=== PATIENT | female | born 1970 | race Caucasian/White ===

== ENCOUNTER 2017-03-14 19:11 | Observation (INO) | payer OTHER ==
[~2017-03-14] VITALS: Ht 170.2 cm; Wt 61.2 kg
[~2017-03-14 19:11] MED LIST: ACYCLOVIR400 MG PO; BACTRIM DS1 TAB PO; BUSPAR5 MG PO; CIPRO500 MG OR; FLUCONAZOLE100 MG PO; MULTI VITAMN OR; NEURONTIN300 MG PO; NORCO1 TA1 PO; PAXIL40 MG OR; ROBITUSS12 OR; SEPTRA DS1 TAB OR; THORAZINE25 MG PO; TORADOL OR; TORADOL PO; ZOFRAN ODT4 MG OR; ZOLOFT100 MG PO; [UNRECOGNIZED DRUG - OTHER] PO
--- NOTE | 2017-03-14 19:11 | NUR ---
RECEIVED VIA EMS
--- NOTE | 2017-03-14 19:54 | NUR ---
PT WITH BLOOD DRAWN BY LAB, PLACED ON MONITORS, WARM BLANKETS PROVIDED.
[2017-03-14 20:05] LABS: HEMATOCRIT 35.4 % (37.0-47.0); HEMOGLOBIN 11.9 g/dl (12.0-16.0); IMMATURE GRANULOCYTES 0.5 % (0.0-1.0); MEAN CELL VOLUME 93.2 fL CALC (80.0-100.0); MEAN CORPUSCULAR HGB 31.3 pG CALC (26.0-32.0); MEAN CORPUSCULAR HGB CONC 33.6 g/L CALC (32.0-36.0); NEUT# 2.4 thou/uL (2.00-7.15); RED BLOOD COUNT 3.8 mill/uL (4.20-5.60); RED CELL DISTRI WIDTH 13.1 % (11.5-15.5)
[2017-03-14 20:12] LABS: ALBUMIN 3.3 g/dL (3.2-5.0); ALKALINE PHOSPHATASE 70 u/l (38-126); ANION GAP 14 (6-22 (CALC)); BILIRUBIN, TOTAL 0.2 mg/dL (0.0-1.4); BUN 10 mg/dL (7-17); BUN/CREATININE RATIO 10 (12-20 (CALC)); CARBON DIOXIDE 21 mmol/l (22-30); CHLORIDE 111 mmol/l (95-108); GFR 59 ML/MIN (>=60 (CALC)); GFR FOR AFR.AMER. > 60 ML/MIN (>=60 (CALC)); GLUCOSE 152 mg/dL (65-105); POTASSIUM 4.1 mmol/l (3.5-5.1); SGOT/AST 14 u/l (14-36); SGPT/ALT 16 u/l (9-52); SODIUM 141 mmol/l (137-146); TOTAL PROTEIN 6.7 g/dL (6.3-8.2)
[2017-03-14 20:24] LABS: MYOGLOBIN 34 ng/mL (0 - 62)
--- NOTE | 2017-03-14 21:08 | NUR ---
PT CLEANED UP FOR STOOL INCONTINENCE. IVF CONTINUES BEFORE.
[2017-03-14 21:48] LABS: URINE BLOOD DIPSTICK NEGATIVE (NEGATIVE); URINE COLOR YELLOW; URINE GLUCOSE - DIPSTICK NEGATIVE (NEGATIVE); URINE KETONE NEGATIVE (NEGATIVE); URINE LEUK ESTERASE TRACE (NEGATIVE); URINE PROTEIN - DIPSTICK NEGATIVE (NEG-TRACE); URINE UROBILINOGEN - DIPSTICK 0.2 E.U./dL (0.2)
[2017-03-14 21:50] LABS: URINE BILIRUBIN - DIPSTICK MODERATE (NEGATIVE); URINE CLARITY CLOUDY; URINE NITRITE - DIPSTICK POSITIVE (Negative)
--- NOTE | 2017-03-14 22:00 | NUR ---
ASSUMED CARE FROM ESTEBAN LIAO
[2017-03-14 22:04] LABS: C. DIFFICILE TOXIN A&B NEGATIVE (NEGATIVE)
[2017-03-14 22:06] LABS: URINE BACTERIA MANY hpf; URINE SQUAMOUS EPITHELIAL CELL FEW EPI/hpf (0-FEW)
[2017-03-14 22:10] LABS: COCAINE NEGATIVE (NEGATIVE); TETRAHYDROCANNABIONOL POSITIVE (NEGATIVE)
[2017-03-14 22:11] LABS: BARBITURATES NEGATIVE (NEGATIVE); METHADONE NEGATIVE (NEGATIVE); OXCYCODONE NEGATIVE (NEGATIVE); TRICYLIC ANTIDEPRESSANTS NEGATIVE (NEGATIVE)
--- NOTE | 2017-03-14 23:10 | NUR ---
[facility] AT BEDSIDE. TRANSFERRED CARE, ENROUTE TO [facility] FOR CT BRAIN.
--- NOTE | 2017-03-15 01:25 | NUR ---
PT RETURNED FROM [facility]. PT WITH EYES CLOSED, RESPONDS TO VERBAL STIMULI.
--- NOTE | 2017-03-15 02:15 | NUR ---
REPORT CALLED TO LESLYE LIAO.
--- NOTE | 2017-03-15 02:25 | NUR ---
PT COND STABLE. TO RM 282 WITH RN ON TELE.
[2017-03-15 02:43] VITALS: BP 123/75
--- NOTE | 2017-03-15 02:45 | NUR ---
PATIENT ADMITTED FROM ER VIA STRETCHER WITH ER STAFF IN ATTENDANCE.
--- NOTE | 2017-03-15 04:11 | NUR ---
PATIENT ADMITTED FROM ER VIA STRETCHER AND ER STAFF IN ATTENDANCE. PATIENT ASSISTED FROM STRETCHER TO THE SHOWER-PATIENT WITH DRIED FECES AND FOUL SMELL AND IN NEED OF PERSONEL HYGEINE. PATIENT IS DEFENSIVE AND VERBALLY USING FOUL LANGUAGE UNTIL IN SHOWER. ASSISTED WITH SHOWER AND THEN TO BED. PATIENT WITH IV SITE TO LEFT AC-SITE APPEARS HEALTHY. IVF NS HUNG AND INFUSING AT 150CC/HR. PATIENT IS ORIENTEDX3. STATES THAT SHE IS HIV+. PATIENT WITH HX OF MRSA. NASAL SWAB OBTAINED AND SENT TO LAB. PATIENT PLACED ON CONTACT FOR HX OF MRSA. PATIENT ADMITS TO [facility]. PATIENT PROVIDED WITH JUICE AND CRACKERS PER REQUEST. ORIENTED TO ROOM AND SURROUNDINGS. INSTRUCTED ON USE OF NURSE CALL LIGHT SYSTEM AND TV REMOTE. SAFETY PRECAUTIONS REVIEWED WITH PATIENT. CALL LIGHT IN REACH. WILL CONT TO MONITOR.
[2017-03-15 05:03] VITALS: BP 107/66
--- NOTE | 2017-03-15 07:00 | NUR ---
SHIFT CHANGE REPORT FROM [place], ELIAS SLEEPING BUT AROUSES TO VERBAL STIMULI, ORIENTED, IVF INFUSING, NO C/O DISCOMFORT, CALL HANSEN IN REACH.
[2017-03-15 07:10] VITALS: BP 89/64
--- NOTE | 2017-03-15 08:30 | NUR ---
PT ALERT AND ORIENTED X3, PT FINISHED BREAKFAST WITH NO ISSUES. ASSESSMENT COMPLETED. LUNG SOUNDS WERE CLEAR WITH NON-PRODUCTIVE COUGH. NEURO ASSESSMENT NORMAL. PT ASSISTED TO THE BATHROOM WITH STEADY GAIT, CREAM DUMPER ON STAND BY.PATIENT DID NOT HAVE ANY COMPLAINTS OF DIZZINESS. IV SITE IS FREE FROM EDEMA AND REDNESS. PT REQUESTING COFFEE AT THIS TIME, NO NEW COMPLAINTS. CALL LIGHT WITHIN REACH. PT EDUCATED TO CALL FOR ASSISTANCE. WILL CONTINUE TO MONITOR.
[2017-03-15 10:06] LABS: HEMATOCRIT 31.8 % (37.0-47.0); HEMOGLOBIN 10.6 g/dl (12.0-16.0); IMMATURE GRANULOCYTES 0.3 % (0.0-1.0); MEAN CELL VOLUME 94.6 fL CALC (80.0-100.0); MEAN CORPUSCULAR HGB 31.5 pG CALC (26.0-32.0); MEAN CORPUSCULAR HGB CONC 33.3 g/L CALC (32.0-36.0); NEUT# 1.26 thou/uL (2.00-7.15); RED BLOOD COUNT 3.36 mill/uL (4.20-5.60)
[2017-03-15 10:34] LABS: ANION GAP 10 (6-22 (CALC)); BUN 7 mg/dL (7-17); BUN/CREATININE RATIO 9 (12-20 (CALC)); CALCULATED LDLCHOLESTEROL 59 mg/dL (62-129 (CALC)); CARBON DIOXIDE 19 mmol/l (22-30); CHLORIDE 119 mmol/l (95-108); CHOLESTEROL HDL RATIO 4.3 (<4.4 (CALC)); CREATININE 0.9 mg/dL (0.5-1.0); GFR > 60 ML/MIN (>=60 (CALC)); GFR FOR AFR.AMER. > 60 ML/MIN (>=60 (CALC)); GLUCOSE 105 mg/dL (65-105); HDL CHOLESTEROL 25 mg/dL (>=40); MAGNESIUM 1.6 mg/dL (1.6-2.3); POTASSIUM 4.5 mmol/l (3.5-5.1); SODIUM 143 mmol/l (137-146); TOTAL CHOLESTEROL 107 mg/dl (0-199); TOTAL TRIGLYCERIDES 118 mg/dl (30-149); VLDL CHOLESTROL 24 mg/dl (1-41 (CALC))
--- NOTE | 2017-03-15 11:12 | NUR ---
PT'S SON IS HERE AT THIS TIME INQUIRING ABOUT PLAN, PT GAVE PERMISSION TO SPEAK WITH HIM AND APPROPRIATE INFO GIVEN/QUESTIONS ANSWERED, WILL CONTINUE TO MONITOR.
[2017-03-15 11:35] VITALS: BP 110/77
[2017-03-15] MEDS ORDERED: KEFLEX500 MG PO (14:50)
[2017-03-15 15:27] VITALS: BP 95/62
--- NOTE | 2017-03-15 15:56 | NUR ---
Visited pt room for discharge med rec. Advised pt that she is being discharged on Keflex for UTI. Reviewed side effects with pt including N/V/D and that she can take with food to help avoid stomach upset, as well as that she should be sure to take complete the regimen to make sure infection does not return. Let pt know that if she develops a rash to contact physician. Pt stated that she does not have a car and is unsure of how she is going to get the medication. States that she used to use [facility] but they do not deliver to her home anymore. Called Renae at [facility] about Meds to Beds Program. Renae said that pt has [facility] which they do not take so med will be $15.98 but she can try to find a coupon for pt to get it at a less expensive damon and deliver it here at [facility] for her if she will be able to pay albert. Returned to pt room to discuss, but pt had already left hospital.
== END 2017-03-15 15:50 | disposition home or self-care (01) | DRG 897 ==
LOC: ED 19:11 → ED-I 03-15 01:15 → ED 03-15 01:40 → MS2 03-15 01:41
PROVIDERS: Emergency Medicine; Nurse Practitioner Family; ADMIT Internal Medicine; ATTEND Internal Medicine
DX: F15.159 Other stimulant abuse with stimulant-induced psychotic disorder, unspecified (principal); F11.159 Opioid abuse with opioid-induced psychotic disorder, unspecified; F12.159 Cannabis abuse with psychotic disorder, unspecified; I95.9 Hypotension, unspecified; N39.0 Urinary tract infection, site not specified; E03.9 Hypothyroidism, unspecified; F31.9 Bipolar disorder, unspecified; F17.210 Nicotine dependence, cigarettes, uncomplicated; E86.0 Dehydration; R63.6 Underweight; R63.0 Anorexia; B96.20 Unspecified Escherichia coli [E. coli] as the cause of diseases classified elsewhere; F10.10 Alcohol abuse, uncomplicated; Z86.718 Personal history of other venous thrombosis and embolism; Z59.0 Homelessness; Z21 Asymptomatic human immunodeficiency virus [HIV] infection status
CPT/HCPCS: G0378

== ENCOUNTER 2017-05-17 14:16 | Emergency (ER) | payer OTHER ==
[~2017-05-17] VITALS: Ht 170.2 cm; Wt 56.0 kg
[~2017-05-17 14:16] MED LIST changes: +KEFLEX500 MG PO
[2017-05-17 14:53] LABS: URINE BLOOD DIPSTICK MODERATE (NEGATIVE); URINE COLOR YELLOW; URINE GLUCOSE - DIPSTICK NEGATIVE (NEGATIVE); URINE KETONE NEGATIVE (NEGATIVE); URINE PH 5.5 (4.5-8.0); URINE PROTEIN - DIPSTICK 100 mg/dL (NEG-TRACE); URINE SPECIFIC GRAVITY 1.025; URINE UROBILINOGEN - DIPSTICK 0.2 E.U./dL (0.2)
[2017-05-17 14:55] LABS: URINE CLARITY CLOUDY; URINE LEUK ESTERASE MODERATE (NEGATIVE); URINE NITRITE - DIPSTICK POSITIVE (Negative)
[2017-05-17 14:56] LABS: URINE BILIRUBIN - DIPSTICK NEGATIVE (NEGATIVE)
[2017-05-17 15:03] LABS: URINE BACTERIA MODERATE hpf; URINE SQUAMOUS EPITHELIAL CELL FEW EPI/hpf (0-FEW); URINE WBC 50-100 WBC/hpf (0-5)
[2017-05-17] MEDS ORDERED: KEFLEX500 MG PO (15:22)
[2017-05-17] MEDS ORDERED: PYRIDIUM200 MG PO (15:22)
[2017-05-17 15:34] VITALS: BP 101/67
== END 2017-05-17 16:00 | disposition home or self-care (01) | DRG 690 ==
LOC: ED 14:16
PROVIDERS: Emergency Medicine
DX: N39.0 Urinary tract infection, site not specified (principal); B96.20 Unspecified Escherichia coli [E. coli] as the cause of diseases classified elsewhere; M54.5 Low back pain; R50.9 Fever, unspecified; R39.198 Other difficulties with micturition; Z21 Asymptomatic human immunodeficiency virus [HIV] infection status

== ENCOUNTER 2017-05-28 08:09 | Emergency (ER) | payer OTHER ==
[~2017-05-28] VITALS: Ht 170.2 cm; Wt 61.4 kg
[~2017-05-28 08:09] MED LIST changes: +PYRIDIUM200 MG PO
[2017-05-28] MEDS ORDERED: DICLOFENAC75 MG PO (08:43)
[2017-05-28] MEDS ORDERED: TRAZODONE50 MG PO (08:44)
[2017-05-28] MEDS ORDERED: LEVOTHYROXIN75 MCG PO (08:45)
[2017-05-28 08:50] LABS: IMMATURE GRANULOCYTES 0.7 % (0.0-1.0); MEAN CELL VOLUME 95.9 fL CALC (80.0-100.0); MEAN CORPUSCULAR HGB 30.9 pG CALC (26.0-32.0); MEAN CORPUSCULAR HGB CONC 32.2 g/L CALC (32.0-36.0); NEUT# 1.95 thou/uL (2.00-7.15); RED BLOOD COUNT 3.63 mill/uL (4.20-5.60); RED CELL DISTRI WIDTH 15.1 % (11.5-15.5)
[2017-05-28 08:53] LABS: HEMATOCRIT 34.8 % (37.0-47.0); HEMOGLOBIN 11.2 g/dl (12.0-16.0)
[2017-05-28 09:10] LABS: URINE BILIRUBIN - DIPSTICK NEGATIVE (NEGATIVE); URINE BLOOD DIPSTICK NEGATIVE (NEGATIVE); URINE CLARITY CLEAR; URINE COLOR YELLOW; URINE GLUCOSE - DIPSTICK NEGATIVE (NEGATIVE); URINE KETONE NEGATIVE (NEGATIVE); URINE LEUK ESTERASE NEGATIVE (NEGATIVE); URINE NITRITE - DIPSTICK NEGATIVE (Negative); URINE PROTEIN - DIPSTICK NEGATIVE (NEG-TRACE); URINE SPECIFIC GRAVITY 1.025; URINE UROBILINOGEN - DIPSTICK 0.2 E.U./dL (0.2)
[2017-05-28 09:11] LABS: BUN 9 mg/dL (7-17); BUN/CREATININE RATIO 12 (12-20 (CALC)); CHLORIDE 111 mmol/l (95-108); CPK 115 u/l (30-165); CREATININE 0.8 mg/dL (0.5-1.0); GFR > 60 ML/MIN (>=60 (CALC)); GFR FOR AFR.AMER. > 60 ML/MIN (>=60 (CALC)); POTASSIUM 4.4 mmol/l (3.5-5.1); SODIUM 140 mmol/l (137-146)
[2017-05-28 09:14] LABS: BARBITURATES NEGATIVE (NEGATIVE); COCAINE NEGATIVE (NEGATIVE); METHADONE NEGATIVE (NEGATIVE); OXCYCODONE NEGATIVE (NEGATIVE); TETRAHYDROCANNABIONOL POSITIVE (NEGATIVE); TRICYLIC ANTIDEPRESSANTS NEGATIVE (NEGATIVE)
[2017-05-28 09:22] LABS: ANION GAP 12 (6-22 (CALC)); CARBON DIOXIDE 21 mmol/l (22-30); ETHYL ALCOHOL 0 mg/dl (0-30)
[2017-05-28 09:40] LABS: TSH, 3RD GENERATION 1.39 uIU/mL (0.47 - 4.68)
[2017-05-28 11:06] VITALS: BP 112/76
== END 2017-05-28 11:10 | disposition home or self-care (01) | DRG 897 ==
LOC: ED 08:09
PROVIDERS: Family Medicine
DX: F15.10 Other stimulant abuse, uncomplicated (principal); F12.10 Cannabis abuse, uncomplicated; R56.9 Unspecified convulsions; Z21 Asymptomatic human immunodeficiency virus [HIV] infection status; F17.200 Nicotine dependence, unspecified, uncomplicated

== ENCOUNTER 2017-07-23 23:38 | Emergency (ER) | payer MEDICAID ==
[~2017-07-23] VITALS: Ht 170.2 cm; Wt 50.0 kg
[~2017-07-23 23:38] MED LIST changes: +DICLOFENAC75 MG PO; +LEVOTHYROXIN75 MCG PO; +TRAZODONE50 MG PO
[2017-07-24 00:24] LABS: HEMATOCRIT 33.9 % (37.0-47.0); HEMOGLOBIN 11.1 g/dl (12.0-16.0); IMMATURE GRANULOCYTES 0.4 % (0.0-1.0); MEAN CELL VOLUME 91.9 fL CALC (80.0-100.0); MEAN CORPUSCULAR HGB 30.1 pG CALC (26.0-32.0); MEAN CORPUSCULAR HGB CONC 32.7 g/L CALC (32.0-36.0); NEUT# 6.4 thou/uL (2.00-7.15); RED BLOOD COUNT 3.69 mill/uL (4.20-5.60); RED CELL DISTRI WIDTH 15.4 % (11.5-15.5)
[2017-07-24 00:26] LABS: URINE BLOOD DIPSTICK TRACE-INTACT (NEGATIVE); URINE CLARITY SL CLOUDY; URINE COLOR YELLOW; URINE GLUCOSE - DIPSTICK NEGATIVE (NEGATIVE); URINE KETONE NEGATIVE (NEGATIVE); URINE LEUK ESTERASE TRACE (NEGATIVE); URINE NITRITE - DIPSTICK NEGATIVE (Negative); URINE PH 5.5 (4.5-8.0); URINE PROTEIN - DIPSTICK 30 mg/dL (NEG-TRACE); URINE SPECIFIC GRAVITY >=1.030; URINE UROBILINOGEN - DIPSTICK 0.2 E.U./dL (0.2)
[2017-07-24 00:29] LABS: URINE BILIRUBIN - DIPSTICK NEGATIVE (NEGATIVE)
[2017-07-24 00:32] LABS: BARBITURATES NEGATIVE (NEGATIVE); COCAINE NEGATIVE (NEGATIVE); METHADONE NEGATIVE (NEGATIVE); TETRAHYDROCANNABIONOL POSITIVE (NEGATIVE); TRICYLIC ANTIDEPRESSANTS NEGATIVE (NEGATIVE)
[2017-07-24 00:33] LABS: OXCYCODONE NEGATIVE (NEGATIVE)
[2017-07-24 00:40] LABS: URINE BACTERIA MANY hpf; URINE SQUAMOUS EPITHELIAL CELL FEW EPI/hpf (0-FEW)
[2017-07-24 00:41] LABS: URINE FINE GRAN CAST FEW lpf
[2017-07-24 00:42] LABS: URINE AMORPH SEDIMENT FEW hpf (NONE-FEW); URINE YEAST MODERATE hpf
[2017-07-24 00:56] LABS: ALBUMIN 4.2 g/dL (3.2-5.0); ALKALINE PHOSPHATASE 110 u/l (38-126); BILIRUBIN, TOTAL 0.5 mg/dL (0.0-1.4); BUN 56 mg/dL (7-17); CHLORIDE 105 mmol/l (95-108); POTASSIUM 4.6 mmol/l (3.5-5.1); SGPT/ALT 33 u/l (9-52); SODIUM 143 mmol/l (137-146); TOTAL PROTEIN 8.8 g/dL (6.3-8.2)
[2017-07-24 00:57] LABS: ANION GAP 30 (6-22 (CALC)); BUN/CREATININE RATIO 14 (12-20 (CALC)); CARBON DIOXIDE 13 mmol/l (22-30); CREATININE 4.1 mg/dL (0.5-1.0); ETHYL ALCOHOL 0 mg/dl (0-30); GFR 12 ML/MIN (>=60 (CALC)); GFR FOR AFR.AMER. 14 ML/MIN (>=60 (CALC)); SGOT/AST 49 u/l (14-36)
[2017-07-24 08:15] VITALS: BP 108/65
== END 2017-07-24 08:15 | disposition short-term general hospital (02) | DRG 690 ==
LOC: ED 23:38
PROVIDERS: Emergency Medicine
DX: N39.0 Urinary tract infection, site not specified (principal); R45.851 Suicidal ideations; N19 Unspecified kidney failure; F19.20 Other psychoactive substance dependence, uncomplicated; F32.9 Major depressive disorder, single episode, unspecified; B96.20 Unspecified Escherichia coli [E. coli] as the cause of diseases classified elsewhere; F17.210 Nicotine dependence, cigarettes, uncomplicated; Z87.440 Personal history of urinary (tract) infections; Z21 Asymptomatic human immunodeficiency virus [HIV] infection status
CPT/HCPCS: J1956; J2060

== ENCOUNTER 2017-08-03 19:35 | Emergency (ER) | payer MEDICAID ==
[~2017-08-03] VITALS: Ht 170.2 cm; Wt 58.2 kg
[2017-08-03 20:43] LABS: HEMATOCRIT 33.4 % (37.0-47.0); HEMOGLOBIN 10.5 g/dl (12.0-16.0); IMMATURE GRANULOCYTES 0.7 % (0.0-1.0); MEAN CELL VOLUME 94.6 fL CALC (80.0-100.0); MEAN CORPUSCULAR HGB 29.7 pG CALC (26.0-32.0); MEAN CORPUSCULAR HGB CONC 31.4 g/L CALC (32.0-36.0); NEUT# 3.93 thou/uL (2.00-7.15); RED BLOOD COUNT 3.53 mill/uL (4.20-5.60); RED CELL DISTRI WIDTH 15.9 % (11.5-15.5)
[2017-08-03 20:53] LABS: MAGNESIUM 1.9 mg/dL (1.6-2.3); POTASSIUM 4.9 mmol/l (3.5-5.1)
[2017-08-03] MEDS ORDERED: MOTRIN400 MG PO (21:18)
[2017-08-03] MEDS ORDERED: ASPERCREME LIDOCA41 TOP (21:18)
[2017-08-03 23:04] LABS: URINE BILIRUBIN - DIPSTICK NEGATIVE (NEGATIVE); URINE BLOOD DIPSTICK NEGATIVE (NEGATIVE); URINE COLOR YELLOW; URINE GLUCOSE - DIPSTICK NEGATIVE (NEGATIVE); URINE KETONE NEGATIVE (NEGATIVE); URINE LEUK ESTERASE NEGATIVE (NEGATIVE); URINE NITRITE - DIPSTICK NEGATIVE (Negative); URINE PROTEIN - DIPSTICK TRACE mg/dL (NEG-TRACE); URINE UROBILINOGEN - DIPSTICK 0.2 E.U./dL (0.2)
[2017-08-03 23:06] LABS: URINE CLARITY TURBID
[2017-08-03 23:11] LABS: URINE BACTERIA FEW hpf; URINE MUCUS MANY hpf (NONE-FEW); URINE RBC 0-2 RBC/hpf (0-5); URINE SQUAMOUS EPITHELIAL CELL MANY EPI/hpf (0-FEW)
[2017-08-04 05:01] VITALS: BP 107/82
== END 2017-08-03 23:17 | disposition home or self-care (01) | DRG 552 ==
LOC: ED 19:35
PROVIDERS: Family Medicine
DX: M48.07 Spinal stenosis, lumbosacral region (principal); M54.5 Low back pain; Z21 Asymptomatic human immunodeficiency virus [HIV] infection status

== ENCOUNTER 2017-10-16 18:46 | Emergency (ER) | payer MEDICAID ==
[~2017-10-16] VITALS: Ht 170.2 cm; Wt 50.0 kg
[~2017-10-16 18:46] MED LIST changes: +ASPERCREME LIDOCA41 TOP; +MOTRIN400 MG PO
[2017-10-16] MEDS ORDERED: IBUPROFEN600 MG PO (19:59)
[2017-10-16 20:07] VITALS: BP 101/51
== END 2017-10-16 20:07 | disposition home or self-care (01) ==
LOC: ED 18:46
DX: S40.011A Contusion of right shoulder, initial encounter (principal); S50.812A Abrasion of left forearm, initial encounter; S50.811A Abrasion of right forearm, initial encounter; F17.210 Nicotine dependence, cigarettes, uncomplicated; F99 Mental disorder, not otherwise specified; Y92.009 Unspecified place in unspecified non-institutional (private) residence as the place of occurrence of the external cause; Y04.2XXA Assault by strike against or bumped into by another person, initial encounter; Z87.440 Personal history of urinary (tract) infections; Z21 Asymptomatic human immunodeficiency virus [HIV] infection status

== ENCOUNTER 2017-11-21 04:55 | Emergency (ER) | payer MEDICAID ==
[~2017-11-21] VITALS: Ht 170.2 cm; Wt 56.8 kg
[~2017-11-21 04:55] MED LIST changes: +IBUPROFEN600 MG PO
[2017-11-21 08:50] VITALS: BP 156/93
== END 2017-11-21 08:50 | disposition left against medical advice (07) ==
LOC: ED 04:55
DX: T18.128A Food in esophagus causing other injury, initial encounter (principal); J98.2 Interstitial emphysema; F17.210 Nicotine dependence, cigarettes, uncomplicated; Z91.19 Patient's noncompliance with other medical treatment and regimen
CPT/HCPCS: J1610; S0164

== ENCOUNTER 2018-01-03 13:06 | Emergency (ER) | payer MEDICAID ==
[~2018-01-03] VITALS: Ht 170.2 cm; Wt 54.5 kg
[~2018-01-03 13:06] MED LIST changes: +AZITHROMYCIN600 MG PO; +GABAPENTIN300 M2 PO
[2018-01-03 13:31] LABS: HEMATOCRIT 33.8 % (37.0-47.0); IMMATURE GRANULOCYTES 0.5 % (0.0-5.0); MEAN CELL VOLUME 93.1 fL CALC (80.0-100.0); MEAN CORPUSCULAR HGB 30.3 pG CALC (26.0-32.0); MEAN CORPUSCULAR HGB CONC 32.5 g/L CALC (32.0-36.0); NEUT# 2.53 thou/uL (2.00-7.15); RED BLOOD COUNT 3.63 mill/uL (4.20-5.60); RED CELL DISTRI WIDTH 15.5 % (11.5-15.5)
[2018-01-03 13:43] LABS: ANION GAP 13 (6-22 (CALC)); BUN 19 mg/dL (7-17); BUN/CREATININE RATIO 20 (12-20 (CALC)); CARBON DIOXIDE 21 mmol/l (22-30); CHLORIDE 111 mmol/l (95-108); GFR 59 ML/MIN (>=60 (CALC)); GFR FOR AFR.AMER. > 60 ML/MIN (>=60 (CALC)); POTASSIUM 3.5 mmol/l (3.5-5.1); SODIUM 141 mmol/l (137-146)
[2018-01-03 13:44] LABS: INFLUENZA A NONE DETECTED (NONE DETECT); INFLUENZA B NONE DETECTED (NONE DETECT)
[2018-01-03 15:53] VITALS: BP 97/62
[2018-01-03] MEDS ORDERED: MOTRIN400 MG PO (16:29)
== END 2018-01-03 16:44 | disposition home or self-care (01) ==
LOC: ED 13:06
PROVIDERS: Family Medicine
DX: R53.1 Weakness (principal); B20 Human immunodeficiency virus [HIV] disease; F19.20 Other psychoactive substance dependence, uncomplicated; F17.200 Nicotine dependence, unspecified, uncomplicated; Z87.440 Personal history of urinary (tract) infections; Z86.718 Personal history of other venous thrombosis and embolism; R42 Dizziness and giddiness

== ENCOUNTER 2018-01-15 12:35 | Emergency (ER) | payer MEDICAID ==
[~2018-01-15] VITALS: Ht 170.2 cm; Wt 50.0 kg
[2018-01-15 13:21] LABS: HEMATOCRIT 31.9 % (37.0-47.0); HEMOGLOBIN 10.4 g/dl (12.0-16.0); IMMATURE GRANULOCYTES 0.6 % (0.0-5.0); MEAN CELL VOLUME 91.4 fL CALC (80.0-100.0); MEAN CORPUSCULAR HGB 29.8 pG CALC (26.0-32.0); MEAN CORPUSCULAR HGB CONC 32.6 g/L CALC (32.0-36.0); NEUT# 9.68 thou/uL (2.00-7.15); RED BLOOD COUNT 3.49 mill/uL (4.20-5.60); RED CELL DISTRI WIDTH 14.8 % (11.5-15.5)
[2018-01-15 13:23] LABS: URINE BILIRUBIN - DIPSTICK NEGATIVE (NEGATIVE); URINE BLOOD DIPSTICK NEGATIVE (NEGATIVE); URINE COLOR YELLOW; URINE GLUCOSE - DIPSTICK NEGATIVE (NEGATIVE); URINE KETONE TRACE mg/dL (NEGATIVE); URINE LEUK ESTERASE NEGATIVE (Negative); URINE NITRITE - DIPSTICK NEGATIVE (Negative); URINE PH 5.5 (4.5-8.0); URINE PROTEIN - DIPSTICK TRACE mg/dL (NEG-TRACE); URINE SPECIFIC GRAVITY 1.025; URINE UROBILINOGEN - DIPSTICK 0.2 E.U./dL (0.2)
[2018-01-15 13:24] LABS: URINE CLARITY HAZY
[2018-01-15 13:26] LABS: BARBITURATES NEGATIVE (NEGATIVE); COCAINE NEGATIVE (NEGATIVE); METHADONE NEGATIVE (NEGATIVE); OXCYCODONE NEGATIVE (NEGATIVE); TETRAHYDROCANNABIONOL POSITIVE (NEGATIVE); TRICYLIC ANTIDEPRESSANTS NEGATIVE (NEGATIVE)
[2018-01-15 13:29] LABS: INFLUENZA A NONE DETECTED (NONE DETECT); INFLUENZA B NONE DETECTED (NONE DETECT)
[2018-01-15 13:46] LABS: ALKALINE PHOSPHATASE 75 u/l (38-126); BILIRUBIN, TOTAL 0.2 mg/dL (0.0-1.4); BUN 20 mg/dL (7-17); BUN/CREATININE RATIO 20 (12-20 (CALC)); CARBON DIOXIDE 19 mmol/l (22-30); CHLORIDE 107 mmol/l (95-108); GFR 59 ML/MIN (>=60 (CALC)); GFR FOR AFR.AMER. > 60 ML/MIN (>=60 (CALC)); SGOT/AST 17 u/l (14-36); SODIUM 136 mmol/l (137-146); TOTAL PROTEIN 6.7 g/dL (6.3-8.2)
[2018-01-15 14:00] LABS: ANION GAP 15 (6-22 (CALC)); POTASSIUM 4.5 mmol/l (3.5-5.1)
[2018-01-15] MEDS ORDERED: BACTRIM DS1 TAB PO (14:30)
[2018-01-15] MEDS ORDERED: TAM75CAP PO (14:30)
[2018-01-15] MEDS ORDERED: PROVENTIL108 MCG/AC IN (14:30)
[2018-01-15 14:44] VITALS: BP 101/57
== END 2018-01-15 14:50 | disposition home or self-care (01) ==
LOC: ED 12:35
PROVIDERS: Emergency Medicine
DX: J10.1 Influenza due to other identified influenza virus with other respiratory manifestations (principal); J20.8 Acute bronchitis due to other specified organisms; B20 Human immunodeficiency virus [HIV] disease; G40.909 Epilepsy, unspecified, not intractable, without status epilepticus; F17.200 Nicotine dependence, unspecified, uncomplicated; Z87.440 Personal history of urinary (tract) infections; Z86.718 Personal history of other venous thrombosis and embolism

== ENCOUNTER 2018-01-17 12:49 | Inpatient (IN) | payer MEDICAID ==
[~2018-01-17] VITALS: Ht 170.2 cm; Wt 49.9 kg
[~2018-01-17 12:49] MED LIST changes: +PROVENTIL108 MCG/AC IN; +TAM75CAP PO
--- NOTE | 2018-01-17 13:00 | NUR ---
PT TO ROOM VIA EMS STRETCHER, CRYING. MD AT BEDSIDE.
--- NOTE | 2018-01-17 13:42 | NUR ---
PT RELEASED FROM [facility] ON WEDNESDAY. RETURNING TO ER WITH FEVER- PT NOT TAKING ANY PRESCIBED MEDICATIONS. PT IS VERBALLY ABUSIVE TOWARDS STAFF. PT IS AOX4. PT DENIES ANY C/P, SOB. PT STATES BEING NAUSEATED.
[2018-01-17 13:45] LABS: HEMATOCRIT 31.8 % (37.0-47.0); HEMOGLOBIN 10.7 g/dl (12.0-16.0); IMMATURE GRANULOCYTES 0.7 % (0.0-5.0); MEAN CELL VOLUME 88.1 fL CALC (80.0-100.0); MEAN CORPUSCULAR HGB 29.6 pG CALC (26.0-32.0); MEAN CORPUSCULAR HGB CONC 33.6 g/L CALC (32.0-36.0); NEUT# 17.22 thou/uL (2.00-7.15); RED BLOOD COUNT 3.61 mill/uL (4.20-5.60); RED CELL DISTRI WIDTH 14.6 % (11.5-15.5)
[2018-01-17 13:48] LABS: ALBUMIN 3.6 g/dL (3.2-5.0); ALKALINE PHOSPHATASE 94 u/l (38-126); ANION GAP 19 (6-22 (CALC)); BILIRUBIN, TOTAL 0.3 mg/dL (0.0-1.4); BUN 25 mg/dL (7-17); BUN/CREATININE RATIO 22 (12-20 (CALC)); CARBON DIOXIDE 18 mmol/l (22-30); CHLORIDE 104 mmol/l (95-108); CREATININE 1.2 mg/dL (0.5-1.0); GFR 48 ML/MIN (>=60 (CALC)); GFR FOR AFR.AMER. 58 ML/MIN (>=60 (CALC)); LIPASE 64 u/l (23-300); POTASSIUM 4.3 mmol/l (3.5-5.1); SGOT/AST 17 u/l (14-36); SODIUM 136 mmol/l (137-146); TOTAL PROTEIN 7.7 g/dL (6.3-8.2)
[2018-01-17 13:50] LABS: INFLUENZA A NONE DETECTED (NONE DETECT); INFLUENZA B NONE DETECTED (NONE DETECT)
--- NOTE | 2018-01-17 14:42 | NUR ---
PT HAS CALMED DOWN, PT RESTING ON STRETCHER, IV PATENT WITH FLUIDS RUNNING
--- NOTE | 2018-01-17 16:28 | NUR ---
PHENYLEPHRINE ADMINISTERED WITH MD ORDER. 1 MG AT 1627, 1 MG AT 1630
--- NOTE | 2018-01-17 16:41 | NUR ---
CENTRAL LINE PLACED- PT TOLERATED WELL
--- NOTE | 2018-01-17 17:41 | NUR ---
PT RESTING ON STRECHER, GIVEN A SANDWICH TO EAT
--- NOTE | 2018-01-17 18:41 | NUR ---
PT ASLEEP ON STRETCHER, UPDATED ON WAIT TIMES
--- NOTE | 2018-01-17 19:00 | NUR ---
PT RESTING. NO C/O VSS. NSR. IV INFUSING...LEVAFED A 6/H. PT AWAITING TRANSFER TO [facility].
--- NOTE | 2018-01-17 19:00 | NUR ---
REPORT GIVEN TO MARII LIAO
--- NOTE | 2018-01-17 19:59 | NUR ---
sbar printed to floor
--- NOTE | 2018-01-17 20:05 | NUR ---
PT RESTING. AWAITING DISPO. BP STEADY. PT GIVEN JUICE. HAS ALREADY HAD MEAL TRAY
--- NOTE | 2018-01-17 21:15 | NUR ---
REPORT TO KESHAWN GLEZ, ICU
[2018-01-17 21:17] LABS: URINE BILIRUBIN - DIPSTICK NEGATIVE (NEGATIVE); URINE BLOOD DIPSTICK NEGATIVE (NEGATIVE); URINE COLOR YELLOW; URINE GLUCOSE - DIPSTICK NEGATIVE (NEGATIVE); URINE KETONE NEGATIVE (NEGATIVE); URINE LEUK ESTERASE NEGATIVE (NEGATIVE); URINE NITRITE - DIPSTICK NEGATIVE (Negative); URINE PROTEIN - DIPSTICK NEGATIVE (NEG-TRACE); URINE SPECIFIC GRAVITY <=1.005; URINE UROBILINOGEN - DIPSTICK 0.2 E.U./dL (0.2)
[2018-01-17 21:23] LABS: URINE CLARITY CLEAR
--- NOTE | 2018-01-17 21:30 | NUR ---
TO ICU VIA STRETCHER WITH MONITOR. NAD. PT DRINKING APPLE JUICE. A/O NAD. IV SITES INTACT. IV LEVEFED INFUSING VIA PUMP.
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
[2018-01-17 21:40] VITALS: BP 119/73
[2018-01-17 22:00] VITALS: BP 119/73
[2018-01-17 22:15] VITALS: BP 117/67
[2018-01-17 22:30] VITALS: BP 128/63
[2018-01-17 23:00] VITALS: BP 138/83
--- NOTE | 2018-01-17 23:00 | NUR ---
PT. MEDICATED PER PHYSICIAN ORDERS AT THIS TIME. PROVIDED WITH JUICE AND TURKEY SANDWICHES PER HER REQUEST. DENIES COMPLAINTS OF PAIN OR NEED AT THIS TIME. PROVIDED WITH WARM BLANKET. WILL CONTINUE TO ASSESS.
--- NOTE | 2018-01-17 23:05 | NUR ---
LEVOPHED DRIP STOPPED AT THIS TIME SINCE BP NOW 154/82
[2018-01-18] VITALS (19 sets, daily range): BP systolic 87–150; BP diastolic 50–83
--- NOTE | 2018-01-18 01:15 | NUR ---
PT. ASSISTED TO BSC. APPROX 150 CC CONCENTRATED URINE OUT AT THIS TIME. PT. WHINING BUT DENIES COMPLAINTS OF PAIN AT THIS TIME. PT. ALMOST NEARLY UNINTELLIGIBLE BECAUSE OF HER WHINING. REMAINS STABLE OFF THE LEVOPHED DRIP. WILL CONTINUE TO MONITOR.
--- NOTE | 2018-01-18 02:52 | NUR ---
PT. CONTINUES TO REST WITH MOANING RESPIRATIONS. INTERMITTENT COUGH. PT. VOICES NO COMPLAINTS OR NEEDS. RESPS EVEN AND UNLABORED. VSS. WILL CONTINUE TO MONITOR.
--- NOTE | 2018-01-18 04:42 | NUR ---
PT. RESTING ON LT. SIDE IN NO DISTRESS. HR IN THE 80'S, NO DISTRESS. BP REMAINS STABLE OFF THE LEVOPHED DRIP. PT. WITH ELEVATED TEMP AT THIS TIME AT 100.3. WILL MEDICATE ORDERED.
[2018-01-18 06:07] LABS: HEMATOCRIT 27.7 % (37.0-47.0); HEMOGLOBIN 9.2 g/dl (12.0-16.0); IMMATURE GRANULOCYTES 0.7 % (0.0-5.0); MEAN CELL VOLUME 89.4 fL CALC (80.0-100.0); MEAN CORPUSCULAR HGB 29.7 pG CALC (26.0-32.0); MEAN CORPUSCULAR HGB CONC 33.2 g/L CALC (32.0-36.0); NEUT# 12.2 thou/uL (2.00-7.15); RED BLOOD COUNT 3.1 mill/uL (4.20-5.60)
[2018-01-18 06:27] LABS: ALKALINE PHOSPHATASE 112 u/l (38-126); ANION GAP 12 (6-22 (CALC)); BILIRUBIN, TOTAL 0.2 mg/dL (0.0-1.4); BUN 19 mg/dL (7-17); BUN/CREATININE RATIO 25 (12-20 (CALC)); CARBON DIOXIDE 17 mmol/l (22-30); CHLORIDE 112 mmol/l (95-108); CREATININE 0.8 mg/dL (0.5-1.0); GFR > 60 ML/MIN (>=60 (CALC)); GFR FOR AFR.AMER. > 60 ML/MIN (>=60 (CALC)); SGOT/AST 19 u/l (14-36); SODIUM 138 mmol/l (137-146)
[2018-01-18 06:29] LABS: ALBUMIN 2.5 g/dL (3.2-5.0); TOTAL PROTEIN 5.8 g/dL (6.3-8.2)
--- NOTE | 2018-01-18 06:30 | NUR ---
PT. FOUND SLEEPING AT THIS TIME. TEMP IMPROVED. NOW 99. PT. STATES SHE IS HOT AT THIS TIME. SLIGHLTY HYPOTENSIVE AT 95 SYSTOLIC AT THIS TIME. WILL CONTINUE TO ASSESS. PT. FOUND TO BE INCONTINENT AT THIS TIME. PT. STRONGLY ENCOURAGED TO UTILIZE THE CALL HANSEN IF SHE NEEDS TO URINATE OPPOSED TO URINATING IN THE BED. ALL LINENS CHANGED AND PT. CLEANSED. REMAINS STABLE IN NO DISTRESS.
--- NOTE | 2018-01-18 07:05 | NUR ---
REPORT RECEIVED FROM KESHAWN GLEZ. PT SUPINE IN BED. SLEEPING. NO DISTRESS NOTED. CALL LIGHT WITHIN REACH.
--- NOTE | 2018-01-18 07:30 | NUR ---
PT. AWAKENED FOR ASSESSMENT. PT STATES "I FEEL HORRIBLE." COMPLAINS OF GENERALIZED ACHING. AFEBRILE AT THIS TIME. RHONCHI AUSCULTATED THROUGHOUT LUNG HELM. WET COUGH NOTED, PT STATES IT IS PRODUCTIVE, BUT HAS NOT LOOKED AT SPUTUM. ASSISTED TO BSC. UNSTEADY GAIT. FALL PRECAUTIONS REVIEWED. CALL LIGHT REVIEWED AND IN REACH. PLAN OF CARE DISCUSSED. RIJ TRIPLE LUMEN INFUSING LR@75 ML/HR. DRSG CDI, NO BLEEDING, REDNESS, SWELLING NOTED.
--- NOTE | 2018-01-18 08:30 | NUR ---
PT UP TO BSC W/O CALLING FOR ASSIST. PT ASSISTED. FALL PRECAUTIONS REVIEWED AGAIN. PT BACK IN BED. BED ALARM SET FOR SAFETY.
--- NOTE | 2018-01-18 11:12 | NUR ---
PT SLEEPING. SUPINE IN BED. CALL LIGHT WITHIN REACH. BED ALARM ON FOR SAFETY.
--- NOTE | 2018-01-18 12:24 | NUR ---
DR. MILLIGAN IN TO SEE PT. PLAN OF CARE UPDATED. PT STATES UNDERSTANDING.
--- NOTE | 2018-01-18 14:30 | NUR ---
PT ON PHONE W/ MOTHER IN [place]. APPEARS TEARFUL. EMOTIONAL COMFORT PROVIDED.
--- NOTE | 2018-01-18 16:09 | NUR ---
PT SLEEPING. CALL LIGHT WITHIN REACH. BED ALARM SET FOR SAFETY.
--- NOTE | 2018-01-18 18:15 | NUR ---
PT REPORTED ALL OVER BODY ACHES. TEMP 99.6. TYLENOL PO ADMINISTERED. PT. NOW SLEEPING.
--- NOTE | 2018-01-18 18:45 | NUR ---
REPORT FROM Masood RODRIGUEZ RN. ASSUMED PT. CARE.
--- NOTE | 2018-01-18 19:30 | NUR ---
PT. ASSISTED TO BSC. FOUND WITH FOOD ALL OVER THE BED AND HER GOWN, LINENS CLEANSED AT THIS TIME. PT. UNCOOPERATIVE, DEMANDING THIS RN CHECK HER TEMPERATURE. PT. INFORMED THAT HER TEMP WOULD BE CHECKED SHORTLY. VSS. NO DISTRESS.
--- NOTE | 2018-01-18 20:05 | NUR ---
PT. YELLING AND CURSING AT STAFF. AFEBRILE. STATING SHE NEEDS TYLENOL. INFORMED THAT 98.5 IS NOT A FEVER AND THAT SHE WOULD BE MEDICATED NECESSARY. REMAINS STABLE IN NO DISTRESS OTHER THAN UNCOOPERATIVE WITH STAFF.
--- NOTE | 2018-01-18 21:08 | NUR ---
PT. MEDICATED WITH HS SLEEPING MEDS PER ORDERS. PT. UPDATED ON PLAN OF CARE FOR THE EVENING. VERBALIZES UNDERSTANDING. CALL LIGHT REMAINS WITHIN REACH.
--- NOTE | 2018-01-18 22:17 | NUR ---
NEB TREATMENT COMPLETE AT THIS TIME. REMAINS STABLE. CALL LIGHT REMAINS WITHIN REACH. WILL CONTINUE TO MONITOR.
--- NOTE | 2018-01-18 23:23 | NUR ---
PT. RESTING IN BED WITH MOANING RESPIRATIONS. BP/HR STABLE. 100/50 AT THIS TIME. REMAINS AFEBRILE. RESPS SHALLOW, UNLABORED. CALL LIGHT REMAINS WITHIN REACH. WILL CONTINUE TO MONITOR.
[2018-01-19] VITALS (13 sets, daily range): BP systolic 95–139; BP diastolic 53–81
--- NOTE | 2018-01-19 00:12 | NUR ---
PT. REMAINS EASILY AROUSABLE. ASSISTED TO BSC. APPROX 300 CC OUT AT THIS TIME. IV ABX INFUSING AT THIS TIME WITHOUT SX OF INFILTRATION OR REACTIONS. DENIES COMPLAINTS OF PAIN OR NEED. AFEBRILE AT 97.1.
--- NOTE | 2018-01-19 02:46 | NUR ---
PT. REMAINS STABLE AT THIS TIME. RESTING ON LT. SIDE IN NO DISTRESS. RESPS EVEN, SHALLOW TACHYPNIC AT 26/MIN. STABLE OTHERWISE. IV FLUIDS INFUSING ORDERED. CALL LIGHT REMAINS WITHIN REACH.
--- NOTE | 2018-01-19 04:35 | NUR ---
PT. RESTING IN BED IN NO DISTRESS LYING ON LT. SIDE. VSS. REMAINS AFEBRILE. CALL LIGHT REMAINS WITHIN REACH. WILL CONTINUE TO MONITOR.
--- NOTE | 2018-01-19 04:55 | NUR ---
LABS DRAWN FROM CENTRAL LINE A THIS TIME. ALL LINES HAVE BLOOD RETURN AND FLUSH WELL. PT. ASSISTED TO BSC. APPROX 250 CC URINARY OUTPUT AT THIS TIME.
--- NOTE | 2018-01-19 05:30 | NUR ---
NEB TREATMENT IN PROGRESS. PT. CONTINUES TO REST ON LT. SIDE IN NO DISTRESS. WILL CONTINUE TO MONITOR.
--- NOTE | 2018-01-19 05:57 | NUR ---
PORTABLE CHEST X-RAY IN PROGRESS AT THIS TIME.
[2018-01-19 06:17] LABS: HEMATOCRIT 27.2 % (37.0-47.0); HEMOGLOBIN 8.9 g/dl (12.0-16.0); IMMATURE GRANULOCYTES 1.2 % (0.0-5.0); MEAN CELL VOLUME 90.7 fL CALC (80.0-100.0); MEAN CORPUSCULAR HGB 29.7 pG CALC (26.0-32.0); MEAN CORPUSCULAR HGB CONC 32.7 g/L CALC (32.0-36.0); NEUT# 3.71 thou/uL (2.00-7.15); RED CELL DISTRI WIDTH 15.4 % (11.5-15.5)
[2018-01-19 06:38] LABS: ALBUMIN 2.4 g/dL (3.2-5.0); ALKALINE PHOSPHATASE 90 u/l (38-126); ANION GAP 11 (6-22 (CALC)); BILIRUBIN, TOTAL 0.2 mg/dL (0.0-1.4); BUN 10 mg/dL (7-17); BUN/CREATININE RATIO 14 (12-20 (CALC)); CARBON DIOXIDE 19 mmol/l (22-30); CHLORIDE 113 mmol/l (95-108); CREATININE 0.7 mg/dL (0.5-1.0); GFR > 60 ML/MIN (>=60 (CALC)); GFR FOR AFR.AMER. > 60 ML/MIN (>=60 (CALC)); MAGNESIUM 1.6 mg/dL (1.6-2.3); POTASSIUM 3.9 mmol/l (3.5-5.1); SGOT/AST 14 u/l (14-36); SODIUM 139 mmol/l (137-146); TOTAL PROTEIN 5.5 g/dL (6.3-8.2)
--- NOTE | 2018-01-19 06:45 | NUR ---
RECIEVED REPORT FROM KESHAWN GLEZ. ASSUMED PT CARE.
--- NOTE | 2018-01-19 07:00 | NUR ---
PT A&0X3, ABLE TO MAKE NEEDS KNOWN.PERRL.AFEBRILE. SR ON TELEMETRY, HR-83, B/P-139/77, RR-22, SA02@98%RA. PT DENIES CHEST PAIN, SOB OR DISTRESS AT THIS TIME. PT REPORT HEADACHE PAIN 5 ON 1-10 SCALE. LS RHONCHI/COARSE WITH WE NON- PRODUCTIVE COUGH NOTED, PT NOTED WITH MODERATE GREEN DISCHARGE FROM NARES, MRSA SWAB PENDING. PT CONTINUES WITH SCAB TO L OUTER NARE, MULTIPLE SCAB ON BUE. BSX4 ACTIVE, PT STATES LAST BM 01/17/18, ABDOMEN SOFT/DISTENDED, NON-TENDER. PT STATES SHE JUST WANTS TO GO TO HOSPICE, SHE IS SICK AND TIRED OF BEING SICK AND TIRED. PT ASSISTED TO BSC, WEAK, UNSTEADY GAIT. 150OP OF YELLOW URINE NOTED.EXTRA WARM BLANKET GIVEN. PT RESTIN IN BED WITH CALL LIGHT IN REACH, WILL MONITOR.
--- NOTE | 2018-01-19 08:00 | NUR ---
PT MEDICATED FOR HEADACHE PAIN"9" ON 1-10 SCALE, PER ORDERS. PT TAKES PO FLUIDS WITH OUT DIFFICULTY. LIGHTS OFF AND BLINDS CLOSED PER PT REQUEST. CALL LIGHT IN REACH, WILL MONITOR.
--- NOTE | 2018-01-19 08:30 | NUR ---
PT STATES SOME RELIEVE OF HEADACHE, "5" ON 1-10 SCALE, PT RESTING IN BED WITH EYES CLOSED, CALL LIGHT IN REACH, WILL MONITOR.
--- NOTE | 2018-01-19 10:02 | NUR ---
PT CONTINUES RESTING IN BED WITH EYES CLOSED, RESPIRATION EVEN/UNLABORED, CONTINUES WITH GREEN DISCHARGE FROM NARES, PT ENCOURAGED TO BLOW NOSE. NS CONTINUES TO RIJ/TL @75ML/HR, NO S/S OF INFILTRATION OR REDNESS AT SITE. CALL LIGHT IN REACH, WILL MONITOR.
--- NOTE | 2018-01-19 11:45 | NUR ---
PT MOTHER CALLED, CALL TRANSFER TO PT BEDSIDE.
--- NOTE | 2018-01-19 13:00 | NUR ---
ASSISTED PT TO BSC, PT A LITTLE MORE STEADY ON FEET. BACK TO BED, CALL LIGHT IN REACH. PT REMAINS AFEBRILE.
--- NOTE | 2018-01-19 13:45 | NUR ---
DR. MILLIGAN AT BEDSIDE FOR ASSESSMENT AND TO DISCUSS PLAN OF CARE. NEW ORDERS RECIEVED.
--- NOTE | 2018-01-19 13:45 | NUR ---
PT GIVEN STRAWBERRY ICE CREAM PER REQUEST. PT TOLERATED WELL. PT REMAINS AFEBRILE. CALL LIGHT IN REACH, WILL MONITOR.
--- NOTE | 2018-01-19 14:00 | NUR ---
SPUTUM SPECIMEN OBTAINED FROM PT AND SENT TO LAB.
--- NOTE | 2018-01-19 15:45 | NUR ---
ASSISTED TO BSC, PT TRANSFERRED WELL. BACK TO BED . CALL LIGHT IN REACH, PT COMPLAINING OF HEADACHE 7 ON 1-10 SCALE, REQUESTED TYLENOL, REQUEST GRANTED. WILL MONITOR.
--- NOTE | 2018-01-19 18:09 | NUR ---
PT RESTING IN BED, NS@75ML/HR CONTINUES INFUSING TO RIJ/TL, NO S/S OF INFILTRATION OR REDNESS NOTED . PT COUGH IS LESS NOTED, RESPIRATIONS EVEN/UNLABORED. PT STATES H/A FEELING BETTER. BED IN LOWEST POSITION, CALL LIGHT IN REACH, WILL MONITOR.
--- NOTE | 2018-01-19 18:45 | NUR ---
REPORT FROM Jaida KEYS RN. ASSUMED PT. CARE.
--- NOTE | 2018-01-19 19:15 | NUR ---
PT. ASSISTED TO BEDSIDE COMMODE. PT. HAS PULLED OFF TELEMETRY LEADS AND PULSE OX. PT. WANTING ALL EQUIPMENT TO BE REMOVED. PT. INFORMED THAT WHILE SHE IS IN THE ICU WE ARE UNABLE TO TAKE HER OFF THE MONITORS. ALSO REQUESTING TO TAKE A SHOWER. PT. OFFERED BASIN TO WASH UP BUT SHE REFUSES AT THIS TIME. STATES SHE WILL TRY TO SHOWER TOMORROW. UPDATED THAT SHE WOULD ONLY HAVE ACCESS TO A SHOWER ON MED/SURG. REMAINS IN NO DISTRESS. CALL LIGHT REMAINS WITHIN REACH. IV FLUIDS INFUSING AT THIS TIME WITHOUT SX OF INFILTRATION.
--- NOTE | 2018-01-19 19:50 | NUR ---
PT. REMAINS AFEBRILE. C/O 11/12 HEADACHE. MEDICATED PER PHYSICIAN ORDERS. WILL CONTINUE TO ASSESS.
--- NOTE | 2018-01-19 21:25 | NUR ---
PT. MEDICATED WITH SLEEPING PILLS PER MD ORDERS. ASSISTED AGAIN TO BSC. LESS AGGITATED THAN BEGINNING OF SHIFT. REMAINS IN NO DISTRESS. VSS.
--- NOTE | 2018-01-19 22:25 | NUR ---
NEB TREATMENT IN PROGRESS. PT. ANGERED BY BEING AWAKEN FOR NEB TREATMENT. RESTING IN BED IN NO DISTRESS. RESPS REMAIN EVEN AND UNLABORED. SKIN WARM AND DRY.
[2018-01-20] VITALS (11 sets, daily range): BP systolic 101–155; BP diastolic 57–90
--- NOTE | 2018-01-20 00:30 | NUR ---
PT. RESTING IN BED WITH EYES CLOSED IN NO DISTRESS. ZOSYN INFUSED, NO REACTIONS NOTED. CALL LIGHT REMAINS WITHIN REACH. VSS. WILL CONTINUE TO MONITOR.
--- NOTE | 2018-01-20 02:34 | NUR ---
PT. CONTINUES TO REST IN BED IN NO DISTRESS. CALL LIGHT REMAINS WITHIN REACH. VSS. RESPS EVEN AND UNLABORED. INTERMITTENTLY MOANING IN HER SLEEP. WILL CONTINUE TO MONITOR.
--- NOTE | 2018-01-20 04:21 | NUR ---
PT. LEADS REPLACED SHE HAS PULLED MULTIPLE LEADS OFF. REMAINS AFEBRILE AT 97.5. NO DISTRESS. IV FLUIDS CONTINUE TO INFUSE ORDERED. CALL LIGHT REMAINS WITHIN REACH. HR/BP STBLE.
[2018-01-20 05:24] LABS: HEMATOCRIT 26.8 % (37.0-47.0); HEMOGLOBIN 8.6 g/dl (12.0-16.0); IMMATURE GRANULOCYTES 2.5 % (0.0-5.0); MEAN CELL VOLUME 90.8 fL CALC (80.0-100.0); MEAN CORPUSCULAR HGB 29.2 pG CALC (26.0-32.0); MEAN CORPUSCULAR HGB CONC 32.1 g/L CALC (32.0-36.0); PLATELET COUNT 320 thou/uL (130-400); RED BLOOD COUNT 2.95 mill/uL (4.20-5.60); RED CELL DISTRI WIDTH 15.1 % (11.5-15.5)
[2018-01-20 05:38] LABS: ALBUMIN 2.2 g/dL (3.2-5.0); ALKALINE PHOSPHATASE 67 u/l (38-126); ANION GAP 11 (6-22 (CALC)); BUN 8 mg/dL (7-17); BUN/CREATININE RATIO 11 (12-20 (CALC)); CARBON DIOXIDE 19 mmol/l (22-30); CHLORIDE 114 mmol/l (95-108); CREATININE 0.7 mg/dL (0.5-1.0); GFR > 60 ML/MIN (>=60 (CALC)); GFR FOR AFR.AMER. > 60 ML/MIN (>=60 (CALC)); MAGNESIUM 1.5 mg/dL (1.6-2.3); POTASSIUM 3.9 mmol/l (3.5-5.1); SGOT/AST 10 u/l (14-36); SODIUM 140 mmol/l (137-146); TOTAL PROTEIN 5.2 g/dL (6.3-8.2)
--- NOTE | 2018-01-20 05:45 | NUR ---
Neb treatment completed at this time. IV Zosyn infusing per physician orders. Pt. stating that she wants to go home today. IV fluids continue to infuse per physician orders. Call light remains within reach. Will continue to monitor.
[2018-01-20 05:54] LABS: IMMATURE CELLS 1 %; MANUAL DIFFERENTIAL YES
[2018-01-20 05:55] LABS: HYPOCHROMIA FEW; MICROCYTOSIS FEW; PLATELET ESTIMATE NORMAL
--- NOTE | 2018-01-20 06:30 | NUR ---
REPORT RECIEVED FROM KESHAWN GLEZ. ASSUMED PT CARE.
--- NOTE | 2018-01-20 07:30 | NUR ---
PT RESTING IN BED, A&OX3, ABLE TO MAKE NEEDS KNOWN. PERRL. SR ON TELEMETRY, HR- 86, B/P- 122/78, T-98, SA02@99%RA, PT DENIES CHEST PAIN, SOB OR DISTRESS. RESPIRATIONS EVEN/UNLABORED, LS WHEEZING/COARSE THROUGHOUT, PT CONTINUES WITH GREEN DISCHARGE FROM NOSE, NON-PRODUCTIVE COUGH NOTED, SPUTUM SAMPLE SENT, PENDING. ABDOMEN SOFT/DISTENDED, NON-TENDER. BSX4 ACTIVE. PT CONTINENT OF BLADDER, YELLOW URINE TO BSC. SCABS TO L ELBOW AND R NARE. RIJ/TL INFUSING NS @75ML/HR, NO S/S OF INFILTRATION OR REDNESS NOTED AT SITE, DRSG-CDI. BED IN LOWEST POSITION, CALL LIGHT IN REACH, WILL MONITOR.
--- NOTE | 2018-01-20 07:40 | NUR ---
DIETARY ON UNIT, BREAKFAST TRAY SET UPPT ATE 25% .
--- NOTE | 2018-01-20 08:30 | NUR ---
PT MEDICATED ORDERED FOR HEADACHE "8" ON 1-10 SCALE WITH COOL CLOTH FOR COMFORT.
--- NOTE | 2018-01-20 10:16 | NUR ---
PT RESTING IN BED, STATES H/A MUCH BETTER, PT BEEN SPEAKING ON GUEST PHONE TO FAMILY MOST OF THE MORNING. VERBALIZES NO COMPLAINTS AT THIS TIME.
--- NOTE | 2018-01-20 11:00 | NUR ---
NOTIFIED LASHAY WITH CM IN REGARDS TO "[employer]" HOUSE THE PT WAS INQUIRING ABOUT. PT STATED SHE HAD BEEN WORKING WITH [employer] AT [facility]. LASHAY WAS UPDATED AND STATED HE WILL MAKE THE PROPER INQUIRIES.
--- NOTE | 2018-01-20 11:25 | NUR ---
RT AT BEDSIDE FOR RESPIRATORY TX.
--- NOTE | 2018-01-20 12:00 | NUR ---
dietary on unit, lunch tray set up.
--- NOTE | 2018-01-20 12:30 | NUR ---
ASSISTED PT TO BSC, BACK TO BED, CALL LIGHT IN REACH
--- NOTE | 2018-01-20 13:00 | NUR ---
DR. MILLIGAN AT BEDSIDE FOR ASSESSMENT AND TO DISCUS PLAN OF CARE, NEW ORDERS RECIEVED. PT TO BED TRANSFER TO [facility] WHEN BED AVAILABLE.
--- NOTE | 2018-01-20 14:00 | NUR ---
PT RESTING IN BED WITH EYES CLOSED , OFFERS NO COMPLAINTS AT THIS TIME.
--- NOTE | 2018-01-20 15:18 | NUR ---
ASSISTED PT TO BSC, BACK TO BED, PT GIVEN ORANGE SHERBET PER REQUEST. CALL LIGHT IN REACH ,WILL MONITOR.
--- NOTE | 2018-01-20 16:01 | NUR ---
PT ASSISTED OVER TO MS UNIT FOR SHOWER, FULL LINEN CHANGE DONE. PT TOLERATED WELL. PT ASSISTED TO BED, CALL LIGHT IN REACH, WILL MONITOR.
--- NOTE | 2018-01-20 18:02 | NUR ---
DIETARY ON UNIT, DINNER TRAY SET UP.
--- NOTE | 2018-01-20 19:00 | NUR ---
REPORT GIVEN BY ELSA LIAO. PATIENT A&0 X 4, IN BED WATCHING TV. RESP EVEN AND UNLABORED WITH A PRODUCTIVE COUGH PRESENT. FALL PRECAUTIONS IN PLACE, PLAN OF CARE DISCUSSED, AND PATIENT INFORMED TO CALL WITH ANY QUESTIONS OR CONCERNS. NO S/S OF DISTRESS NOTED.
--- NOTE | 2018-01-20 19:40 | NUR ---
PATIENT HAS C/O HEADACHE MEDICATED PER MD ORDERS. PATIENT ASKED FOR ALL BEDTIME MEDICATIONS AT THAT TIME.
[2018-01-21] VITALS (7 sets, daily range): BP systolic 115–134; BP diastolic 60–78
--- NOTE | 2018-01-21 00:28 | NUR ---
PATIENT RESTING WITH EYES CLOSED. RESP EVEN AND UNLABORED. NO S/S OF DISTRESS NOTED.
--- NOTE | 2018-01-21 04:00 | NUR ---
PATIENT IS AWAKE WATCHING TV. RESP EVEN AND UNLABORED. NO S/S OF DISTRESS NOTED. PATIENT CONTIUNES TO HAVE A PRODUCTIVE COUGH.
[2018-01-21 05:09] LABS: HEMATOCRIT 29.2 % (37.0-47.0); HEMOGLOBIN 9.5 g/dl (12.0-16.0); IMMATURE GRANULOCYTES 3.8 % (0.0-5.0); MEAN CELL VOLUME 90.4 fL CALC (80.0-100.0); MEAN CORPUSCULAR HGB 29.4 pG CALC (26.0-32.0); MEAN CORPUSCULAR HGB CONC 32.5 g/L CALC (32.0-36.0); PLATELET COUNT 351 thou/uL (130-400); RED BLOOD COUNT 3.23 mill/uL (4.20-5.60); RED CELL DISTRI WIDTH 15.1 % (11.5-15.5)
[2018-01-21 05:32] LABS: ALBUMIN 2.4 g/dL (3.2-5.0); ALKALINE PHOSPHATASE 68 u/l (38-126); ANION GAP 11 (6-22 (CALC)); BILIRUBIN, TOTAL 0.1 mg/dL (0.0-1.4); BUN 9 mg/dL (7-17); BUN/CREATININE RATIO 11 (12-20 (CALC)); CARBON DIOXIDE 21 mmol/l (22-30); CHLORIDE 112 mmol/l (95-108); CREATININE 0.8 mg/dL (0.5-1.0); GFR > 60 ML/MIN (>=60 (CALC)); GFR FOR AFR.AMER. > 60 ML/MIN (>=60 (CALC)); MAGNESIUM 1.5 mg/dL (1.6-2.3); POTASSIUM 4.3 mmol/l (3.5-5.1); SGOT/AST 11 u/l (14-36); SODIUM 140 mmol/l (137-146); TOTAL PROTEIN 5.6 g/dL (6.3-8.2)
[2018-01-21 06:20] LABS: MANUAL DIFFERENTIAL YES
[2018-01-21 06:21] LABS: BAND 2 % (0-8)
[2018-01-21 06:22] LABS: HYPOCHROMIA FEW
[2018-01-21 06:24] LABS: OVALOCYTES RARE; PLATELET ESTIMATE NORMAL
--- NOTE | 2018-01-21 06:30 | NUR ---
RECEIVED REPORT FROM KESHAWN CARTAGENA. ASSUMED PT CARE.
--- NOTE | 2018-01-21 07:00 | NUR ---
PT A&0X3, ABLE TO MAKE NEEDS KNOWN. HR-84, B/P-131/75, RR-18, SA02@98%RA. RESPIRATIONS EVEN/UNLABORED, LS WHEEZING THROUGHOUT, PT CONTNIUES WITH A WET NON- PRODUCTIVE COUGH AND YELLOW DISCHARGE FROM NOSE. ABDOMEN SOFT, NON-TENDER. BSX4 ACTIVE. SCABS HEALING STATE ON R NARE AND L ELBOW. RIJ/TL CONTINUES INFUSING NS@75ML/HR, NO S/S OF INFILTRATION OR REDNESS AT SITE. PT CONTINUES TO SATES THAT SHE WANTS TO GO HOME, SHE IS NOT GETTING ANY REAT HERE BECAUSE STAFF IS CONSTANTLY CHECKING HER LS, TAKING BLOOD, TAKING B/P, AND THE MONITORS. PT EDUCATED ON HER DX AND DISEASE PROCESS. PT IS IN ICU ON MS OBS, NOT MONITORS ARE IN PLACE AT THIS TIME, SO STAFF MUST COME IN TO CHECK ON HERE, VITALS ARE DONE EVERY 4HRS AND PRN CONDITION WARRANTS. PT VERBALIZED UNDERSTANDING. BED IN LOWEST POSITION, CALL LIGHT IN REACH.
--- NOTE | 2018-01-21 07:45 | NUR ---
DIETARY ON UNIT, BREAKFAST TRAY SET UP. PT GIVEN 3 MORE SUGARS PER REQUEST.
--- NOTE | 2018-01-21 10:00 | NUR ---
pt assited to bcs. then assisted back to bed. call light in reach.
--- NOTE | 2018-01-21 11:30 | NUR ---
WANDA METZ AT BEDSIDE, PT ASKED TO GET OFF PHONE. PT DECLINED THEN STATED SHE NEED TO USE BSC. LASHAY, PAT MUÑOZ STATED HE WOULD COME BACK. PT ASSISTED TO BSC, THEN BACK TO BED. CALL LIGHT IN REACH.
--- NOTE | 2018-01-21 12:00 | NUR ---
WANDA METZ BACK TO UNIT TO TALK WITH PT ABOUT POSSIBLE PLACEMENT, PT REFUSED AND STATED SHE WANTS TO LEAVE AMA. I TOOK THE FORM IN AND EDUCATED HER ON THE RISK OF NOT RECIEVING PROPER MEDICAL ATTENTION , INCLUDING . PT THEN, STATED SHE WANTED THE DOCTOR TO WRITE PRESCRIPTIONS THEN SHE WOULD GO, AGAIN PT INFORMED THAT IS NOT HOW IT WORKS, SHE NEED TO REMAINS UNDER THE DR. ROMERO CARE HERE IN HOSPITAL AND CONTINUE THE PRESCRIBED TREATMENT PLAN HE HAS DISCUSSED WITH HER. PT AGREED SHE WOULD STAY AND RECIEVE THE NECESSARY CARE.
--- NOTE | 2018-01-21 12:30 | NUR ---
DR. MILLIGAN AT BEDSIDE FOR ASSESSMENT AND TO DISCUSS PLAN OF CARE IN FURTHER DETAIL. NEW ORDERS RECIEVED. PT VERBALIZED UNDERSTANDING & AGREEMENT.
--- NOTE | 2018-01-21 13:00 | NUR ---
PT ASSISTED TO BSC, PT HAD XL BM SOFT/FORMED. ASSISTED BACK TO BED, CALL LIGHT IN REACH.
--- NOTE | 2018-01-21 15:42 | NUR ---
S: BERNARDINO RUSS is a 47 F who presents with fever and cough. She has a history of seizures, chronic UTIs, drug dependence, psych disorder, AIDs, C section All medications in patient's chart were reviewed. O: VS: BP 122/72, P 80, RR 16, T 96.1 W 49.9, HT 67'', Scr= 0.8 ,CrCl= 65 A: Blood culture pending P: Vancomycin ordered for pharmacy to dose. Start Vancomycin 1000 mg IV Q 24 H. Vancomycin trough is drawn before the 4th dose on 01/24/18 at 1430. Vancomycin goal trough is between <10-15 mcg/ml>. Pharmacy will follow and or advise on antibiotics use as needed.
--- NOTE | 2018-01-21 15:59 | NUR ---
PT RESTING IN BED WATCHING TV, PT REQUESTED MEDICATION FOR A HEADACHE "7-8" ON 1-10 SCALE. REQUEST GRANTED. RESP. EVEN/UNLABORED, PT DENIES SOB OR DISTRESS. CALL LIGHT IN REACH, WILL MONITOR.
--- NOTE | 2018-01-21 16:34 | NUR ---
PT MOTHER CALLED, AFTER CODE VERIFIED, UPDATE GIVEN TO HER . THEN TRANSFERRED PHONE CALL TO [facility] AND GAVE TO PT TO TALK WITH MOTHER.
--- NOTE | 2018-01-21 17:02 | NUR ---
LARON QUARLES CM WITH [employer] CALLED TO SPEAK WITH PT ABOUT POSSIBLE PLACEMENT TO REHAB. CALL TRANSFERRED TO [facility]. PT SPEAKING WITH HER NOW.
--- NOTE | 2018-01-21 17:23 | NUR ---
RT AT BEDSIDE FOR ANNA MARIE PRICE
--- NOTE | 2018-01-21 17:51 | NUR ---
DIETARY ON UNIT , DINNER TRAY SET UP.
--- NOTE | 2018-01-21 19:00 | NUR ---
PT RESTING IN BED AWAKE WATCHING TV. PT IS ALERT AND ORIENTED X3.SHIFT ASSESSMENT COMPLETED AT THIS TIME. IV PATENT X1. PLAN OF CARE REVIEWED WITH PT. PT VERBALIZED UNDERSTANDING. PT IS REQUESTING SLEEPING PILL AT THIS TIME. EXPLAINED TO PT THAT MEDICATION IS ORDERED FOR 2099 AND CAN FIVE AT 2029. PT UPSET WITH RESPONSE BUT AGREEABLE. CALL LIGHT IN REACH. WILL CONTINUE TO MONITOR.
--- NOTE | 2018-01-21 23:10 | NUR ---
PT RESTING IN BED WITH EYES CLOSED. RESP ARE EVEN AND UNLABORED. NO DISTRESS NOTED. CALL LIGHT IN REACH. WILL CONTINUE TO MONITOR
--- NOTE | 2018-01-22 03:59 | NUR ---
PT RESTING IN BED WTIH EYES CLOSED. RESP ARE EVEN AND UNLABORED. NO DISTRESS NOTED. CALL LIGHT IN REACH. WILL CONTINUE TO MONITOR.
[2018-01-22 05:03] VITALS: BP 133/90
--- NOTE | 2018-01-22 06:50 | NUR ---
REPORT RECVD FROM KESHAWN LOWE. PT RESTING IN BED.
--- NOTE | 2018-01-22 07:10 | NUR ---
IN ROOM FOR ASSESSMENT. PT C/O HEADACHE TO LEFT SIDE OF HEAD. PT STATES SHE WILL STAY WITH HER FRIEND WHEN SHE GETS RELEASED UNTIL THE 1ST THEN TRY TO GET INTO [facility]. BREATHING EVEN/UNLABORED, CRACKLES IN ALL LOBES. ABD SOFT/NONTENDER, HYPOACTIVE BS. STRONG PULSES. SCOTT. PT IS A [facility] OVERFLOW.
--- NOTE | 2018-01-22 07:17 | NUR ---
CALLED INTO ROOM BC PT SPILLED HER COFFEE ALL OVER TRAY. BM OBSERVED ALL OVER BED & FLOOR, PT STATES SHE DOESNT KNOW HOW THAT HAPPENED. NO BM OBSERVED DURING MORNING ASSESSMENT. PT TEARFUL/CRYING.
--- NOTE | 2018-01-22 07:20 | NUR ---
pt noted to be very belligerent; staff at bedside attempting to calm pt; pt yelling very loudly while cursing staff; pt threatening to leave; AMA explained per staff; nursing sup to be notified
--- NOTE | 2018-01-22 07:22 | NUR ---
PT WALKING AROUND ROOM YELLING PROFANITIES, SMEARING FECES ON BED, SELF, FLOOR DEMANDING I CLEAN HER UP. PT GIVEN SUPPLIES TO CLEAN UP SELF. PT YELLING CALLING ME A "CUNT" AND SCREAMING THAT I NEED TO GET MY "STUPID ASS IN THERE AND CLEAN UP HER SHIT OR I NEED TO FIND A NEW PROFESSION". PT CONTINUOUSLY YELLING PROFANITIES ABOUT THIS RN, CALLING ME A "CUNT, BITCH, STUPID UGLY ASS". OTHER PTS COMPLAINING ABOUT SCREAMING/PROFANITIES/VERBAL THREATS COMING FROM ROOM 3. PT STATING SHE WANTS TO LEAVE AMA. COOK HELPER MEAT CALLED TO HELP DE-ESCALATE PT.
--- NOTE | 2018-01-22 07:32 | NUR ---
PT IN ROOM SCREAMING & YELLING. BREAKFAST HELD UNTIL PT CALMS DOWN.
--- NOTE | 2018-01-22 07:35 | NUR ---
TYLENOL REMOVED FROM PYXIS FOR PTS HEADACHE UPON REQUEST.
--- NOTE | 2018-01-22 07:53 | NUR ---
PEDIATRICS PHYSICIAN @BEDSIDE WITH PT. WORKING ON TRANSFERING PT TO [facility].
--- NOTE | 2018-01-22 07:58 | NUR ---
PT ASSIGNED TO ROOM [id number]
--- NOTE | 2018-01-22 08:01 | NUR ---
WAQAR JENNINGS, TRANSFERED PT TO [facility], BY WC IN STABLE CONDITION.
--- NOTE | 2018-01-22 08:05 | NUR ---
REPORT RECEIVED FROM LAMIN IN ICU, PT ARRIVED ON UNIT VIA W/C AND TRANSFERRED TO BED, ORIENTED TO ROOM AND CALL HANSEN, AGITATED, AGGRAVATED AND NEEDY, C/O HEADACHE @ 11/12, IVF INFUSING TO SITE IN R.IJ, NEEDS ADDRESSED IN TMELY MANNER, WILL CONTINUE TO MONITOR, CALL HANSEN IN REACH.
--- NOTE | 2018-01-22 08:25 | NUR ---
750 - Called by ICU nursing staff due to patient violent outburst. Found patient standing in large pile of semi formed excrement, with excrement noted to be wiped on bed rails, acuna, iv pump, and gown. Pt using multiple expletives in loud voice stating "the nurse didnt get me my sugar for my coffee or something for my fucking headache, that bitch better get in here and clean this shit up" referring to the large amounts of semi formed excrement on above noted surfaces. Pt expressing desire to sign out AMA. This jingle writer verbally de-escalated patient in effort to establish rapport with her. Pt continues to use multiple expletives to this jingle writer about her dissatisfaction over her coffee and lack of "that bitch nurse to wipe my fucking ass". Patient continues to state that she will "take a shit anywhere she damn well pleases and I don't care who has to clean it up" Multiple repeated attempts to verbally de-escalate patient performed with limited success. Pt transferred to room 283 by this jingle writer and assigned new RN, Hannah. Telephonic report to new nurse by off-going ICU nurse Shanna.
[2018-01-22 09:38] VITALS: BP 140/97
--- NOTE | 2018-01-22 12:42 | NUR ---
INC OF STOOL, ASSISTED WITH SET-UP FOR SHOWER, WILL CONTINUE TO MONITOR.
[2018-01-22] MEDS ORDERED: DESYREL50 MG PO (14:04)
[2018-01-22] MEDS ORDERED: LEVAQUIN750 MG PO (14:04)
--- NOTE | 2018-01-22 15:05 | NUR ---
PT IS ANGRY AND DISSATISFIED ABOUT NOTHING IN PARTICULAR AND ABOUT EVERYTHING, DEMANDING TO REMOVE IJ CATHETER NOW BEFORE SHE PULLS IT OUT HERSELF, CATHETER REMOVED BY RN, D/C PAPERS PERPARED AND DISCUSSED WITH PT.
--- NOTE | 2018-01-22 16:00 | NUR ---
Discharge instructions given. Patient verbalizes understanding of same. Discharged in fair condition via Ambulatory to Home with *Other. All belongings sent with pt.
== END 2018-01-22 15:30 | disposition home or self-care (01) | DRG 975 ==
LOC: ED 12:49 → ED-I 14:44 → ED 15:12 → ICU 15:13 → MS2 15:13 → ICU 20:00 → MS2 01-22 08:08
PROVIDERS: Family Medicine; ADMIT Internal Medicine Nephrology; ATTEND Internal Medicine Nephrology
PROC: 02HV33Z Insertion of Infusion Device into Superior Vena Cava, Percutaneous Approach (ICD-10-PCS; principal; 2018-01-17)
PROC: B548ZZA Ultrasonography of Superior Vena Cava, Guidance (ICD-10-PCS; 2018-01-17)
DX: B20 Human immunodeficiency virus [HIV] disease (principal); A41.9 Sepsis, unspecified organism; E46 Unspecified protein-calorie malnutrition; J18.9 Pneumonia, unspecified organism; Z68.1 Body mass index [BMI] 19.9 or less, adult; J44.1 Chronic obstructive pulmonary disease with (acute) exacerbation; J44.0 Chronic obstructive pulmonary disease with (acute) lower respiratory infection; F11.20 Opioid dependence, uncomplicated; G40.909 Epilepsy, unspecified, not intractable, without status epilepticus; I10 Essential (primary) hypertension; F17.210 Nicotine dependence, cigarettes, uncomplicated; T37.5X6A Underdosing of antiviral drugs, initial encounter; F31.9 Bipolar disorder, unspecified; E86.0 Dehydration; E03.9 Hypothyroidism, unspecified; R68.0 Hypothermia, not associated with low environmental temperature; I95.9 Hypotension, unspecified; G47.00 Insomnia, unspecified; Z91.120 Patient's intentional underdosing of medication regimen due to financial hardship; Z86.718 Personal history of other venous thrombosis and embolism; Z59.0 Homelessness; Z87.440 Personal history of urinary (tract) infections
CPT/HCPCS: J0692; J1650; J1956

== ENCOUNTER 2018-05-14 08:14 | Emergency (ER) | payer MEDICAID ==
[~2018-05-14] VITALS: Ht 170.2 cm; Wt 66.0 kg
[~2018-05-14 08:14] MED LIST changes: +DESYREL50 MG PO; +LEVAQUIN750 MG PO
[2018-05-14] MEDS ORDERED: ULTRAM50 M1 PO (08:37)
[2018-05-14] MEDS ORDERED: VALTREX1 GM PO (08:37)
[2018-05-14 09:03] VITALS: BP 117/65
== END 2018-05-14 09:22 | disposition home or self-care (01) ==
LOC: ED 08:14
DX: B02.9 Zoster without complications (principal); B20 Human immunodeficiency virus [HIV] disease; G40.909 Epilepsy, unspecified, not intractable, without status epilepticus; F17.210 Nicotine dependence, cigarettes, uncomplicated; Z86.718 Personal history of other venous thrombosis and embolism

== ENCOUNTER 2018-06-17 14:17 | Emergency (ER) | payer MEDICAID ==
[~2018-06-17] VITALS: Ht 170.2 cm; Wt 59.0 kg
[~2018-06-17 14:17] MED LIST changes: +ULTRAM50 M1 PO; +VALTREX1 GM PO
[2018-06-17 14:46] LABS: HEMATOCRIT 30.9 % (37.0-47.0); HEMOGLOBIN 9.9 g/dl (12.0-16.0); IMMATURE GRANULOCYTES 0.3 % (0.0-5.0); MEAN CELL VOLUME 91.7 fL CALC (80.0-100.0); MEAN CORPUSCULAR HGB 29.4 pG CALC (26.0-32.0); NEUT# 1.33 thou/uL (2.00-7.15); RED BLOOD COUNT 3.37 mill/uL (4.20-5.60)
[2018-06-17 15:02] LABS: ALKALINE PHOSPHATASE 54 u/l (38-126); ANION GAP 10 (6-22 (CALC)); BILIRUBIN, TOTAL 0.2 mg/dL (0.0-1.4); BUN 16 mg/dL (7-17); BUN/CREATININE RATIO 18 (12-20 (CALC)); CARBON DIOXIDE 19 mmol/l (22-30); CHLORIDE 112 mmol/l (95-108); CREATININE 0.9 mg/dL (0.5-1.0); GFR > 60 ML/MIN (>=60 (CALC)); GFR FOR AFR.AMER. > 60 ML/MIN (>=60 (CALC)); LIPASE 244 u/l (23-300); POTASSIUM 3.5 mmol/l (3.5-5.1); SGOT/AST 14 u/l (14-36); SODIUM 137 mmol/l (137-146); TOTAL PROTEIN 6.1 g/dL (6.3-8.2)
[2018-06-17 15:03] LABS: ALBUMIN 2.9 g/dL (3.2-5.0)
[2018-06-17 18:57] VITALS: BP 118/62
== END 2018-06-17 19:16 | disposition short-term general hospital (02) ==
LOC: ED 14:17
PROVIDERS: Family Medicine
DX: R65.20 Severe sepsis without septic shock (principal); B20 Human immunodeficiency virus [HIV] disease; R55 Syncope and collapse; R42 Dizziness and giddiness; R11.0 Nausea; R53.1 Weakness; R53.83 Other fatigue; G40.909 Epilepsy, unspecified, not intractable, without status epilepticus; F17.200 Nicotine dependence, unspecified, uncomplicated
CPT/HCPCS: J0692

== ENCOUNTER 2018-07-07 16:13 | Emergency (ER) | payer MEDICAID ==
[~2018-07-07] VITALS: Ht 170.2 cm; Wt 70.0 kg
[2018-07-07 18:56] VITALS: BP 127/92
== END 2018-07-07 18:57 ==
LOC: ED 16:13
DX: S12.101A Unspecified nondisplaced fracture of second cervical vertebra, initial encounter for closed fracture (principal); R51 Headache; W19.XXXA Unspecified fall, initial encounter; Y93.01 Activity, walking, marching and hiking; Y92.009 Unspecified place in unspecified non-institutional (private) residence as the place of occurrence of the external cause; F43.0 Acute stress reaction
CPT/HCPCS: J2060

== ENCOUNTER 2018-08-08 12:16 | Emergency (ER) | payer MEDICAID ==
[~2018-08-08] VITALS: Ht 170.2 cm; Wt 50.0 kg
[2018-08-08 12:33] VITALS: BP 118/56
[2018-08-08 13:51] LABS: HEMATOCRIT 32.4 % (37.0-47.0); HEMOGLOBIN 10.3 g/dl (12.0-16.0); IMMATURE GRANULOCYTES 0.3 % (0.0-5.0); MEAN CELL VOLUME 95.9 fL CALC (80.0-100.0); MEAN CORPUSCULAR HGB 30.5 pG CALC (26.0-32.0); MEAN CORPUSCULAR HGB CONC 31.8 g/L CALC (32.0-36.0); NEUT# 3.44 thou/uL (2.00-7.15); RED BLOOD COUNT 3.38 mill/uL (4.20-5.60); RED CELL DISTRI WIDTH 15.9 % (11.5-15.5)
[2018-08-08 14:09] LABS: ALBUMIN 3.4 g/dL (3.2-5.0); ALKALINE PHOSPHATASE 89 u/l (38-126); ANION GAP 13 (6-22 (CALC)); BILIRUBIN, TOTAL 0.4 mg/dL (0.0-1.4); BUN 12 mg/dL (7-17); BUN/CREATININE RATIO 16 (12-20 (CALC)); CARBON DIOXIDE 21 mmol/l (22-30); CHLORIDE 107 mmol/l (95-108); CREATININE 0.8 mg/dL (0.5-1.0); GFR > 60 ML/MIN (>=60 (CALC)); GFR FOR AFR.AMER. > 60 ML/MIN (>=60 (CALC)); POTASSIUM 3.6 mmol/l (3.5-5.1); SGOT/AST 28 u/l (14-36); SODIUM 137 mmol/l (137-146); TOTAL PROTEIN 6.9 g/dL (6.3-8.2)
[2018-08-08] MEDS ORDERED: THORAZINE100 M1 PO (15:49)
[2018-08-08] MEDS ORDERED: LEVOTHYROXIN100 MCG PO (15:50)
[2018-08-08 16:18] LABS: BARBITURATES NEGATIVE (NEGATIVE); COCAINE NEGATIVE (NEGATIVE); METHADONE NEGATIVE (NEGATIVE); OXCYCODONE NEGATIVE (NEGATIVE); TETRAHYDROCANNABIONOL POSITIVE (NEGATIVE); TRICYLIC ANTIDEPRESSANTS NEGATIVE (NEGATIVE)
[2018-08-09] MEDS ORDERED: BACTRIM DS1 TAB PO (18:07)
[2018-08-09] MEDS ORDERED: CEPHALEXIN500 M1 PO (18:07)
== END 2018-08-08 16:53 | disposition left against medical advice (07) ==
LOC: ED 12:16 → ED-I 15:26 → ED 16:53
PROVIDERS: Emergency Medicine
DX: L02.11 Cutaneous abscess of neck (principal); Z21 Asymptomatic human immunodeficiency virus [HIV] infection status; L98.9 Disorder of the skin and subcutaneous tissue, unspecified; F17.200 Nicotine dependence, unspecified, uncomplicated; F19.20 Other psychoactive substance dependence, uncomplicated; Z91.19 Patient's noncompliance with other medical treatment and regimen

== ENCOUNTER 2018-08-09 17:54 | Emergency (ER) | payer MEDICAID ==
[~2018-08-09] VITALS: Ht 170.2 cm; Wt 45.5 kg
[~2018-08-09 17:54] MED LIST changes: +LEVOTHYROXIN100 MCG PO; +THORAZINE100 M1 PO
[2018-08-09] MEDS ORDERED: BACTRIM DS1 TAB PO (18:07)
[2018-08-09] MEDS ORDERED: CEPHALEXIN500 M1 PO (18:07)
[2018-08-09 18:47] VITALS: BP 127/87
== END 2018-08-09 18:47 | disposition home or self-care (01) ==
LOC: ED 17:54
DX: L02.11 Cutaneous abscess of neck (principal); Z21 Asymptomatic human immunodeficiency virus [HIV] infection status; R50.9 Fever, unspecified; F17.210 Nicotine dependence, cigarettes, uncomplicated; W18.30XA Fall on same level, unspecified, initial encounter; Y92.410 Unspecified street and highway as the place of occurrence of the external cause

== ENCOUNTER 2018-08-13 13:10 | Emergency (ER) | payer MEDICAID ==
[~2018-08-13] VITALS: Ht 170.2 cm; Wt 59.0 kg
[~2018-08-13 13:10] MED LIST changes: +CEPHALEXIN500 M1 PO
[2018-08-13 13:43] LABS: HEMATOCRIT 36.1 % (37.0-47.0); HEMOGLOBIN 11.4 g/dl (12.0-16.0); IMMATURE GRANULOCYTES 0.4 % (0.0-5.0); MEAN CELL VOLUME 94.3 fL CALC (80.0-100.0); MEAN CORPUSCULAR HGB 29.8 pG CALC (26.0-32.0); MEAN CORPUSCULAR HGB CONC 31.6 g/L CALC (32.0-36.0); NEUT# 2.29 thou/uL (2.00-7.15); RED BLOOD COUNT 3.83 mill/uL (4.20-5.60); RED CELL DISTRI WIDTH 15.9 % (11.5-15.5)
[2018-08-13 13:45] LABS: URINE BLOOD DIPSTICK NEGATIVE (NEGATIVE); URINE COLOR YELLOW; URINE GLUCOSE - DIPSTICK NEGATIVE (NEGATIVE); URINE KETONE 15 mg/dL (NEGATIVE); URINE LEUK ESTERASE NEGATIVE (NEGATIVE); URINE NITRITE - DIPSTICK NEGATIVE (Negative); URINE PROTEIN - DIPSTICK 30 mg/dL (NEG-TRACE); URINE SPECIFIC GRAVITY >=1.030; URINE UROBILINOGEN - DIPSTICK 0.2 E.U./dL (0.2)
[2018-08-13 13:49] LABS: URINE BILIRUBIN - DIPSTICK SMALL (NEGATIVE)
[2018-08-13 13:54] LABS: BARBITURATES NEGATIVE (NEGATIVE); COCAINE POSITIVE (NEGATIVE); OXCYCODONE NEGATIVE (NEGATIVE); TETRAHYDROCANNABIONOL POSITIVE (NEGATIVE); TRICYLIC ANTIDEPRESSANTS NEGATIVE (NEGATIVE)
[2018-08-13 13:56] LABS: ALBUMIN 3.8 g/dL (3.2-5.0); ALKALINE PHOSPHATASE 119 u/l (38-126); ANION GAP 10 (6-22 (CALC)); BILIRUBIN, TOTAL 0.4 mg/dL (0.0-1.4); BUN 18 mg/dL (7-17); BUN/CREATININE RATIO 21 (12-20 (CALC)); CARBON DIOXIDE 21 mmol/l (22-30); CHLORIDE 112 mmol/l (95-108); CREATININE 0.8 mg/dL (0.5-1.0); GFR > 60 ML/MIN (>=60 (CALC)); GFR FOR AFR.AMER. > 60 ML/MIN (>=60 (CALC)); LIPASE 80 u/l (23-300); POTASSIUM 4.3 mmol/l (3.5-5.1); SGOT/AST 32 u/l (14-36); SODIUM 139 mmol/l (137-146); TOTAL PROTEIN 7.6 g/dL (6.3-8.2)
[2018-08-13 13:57] LABS: URINE AMORPH SEDIMENT FEW hpf (NONE-FEW)
[2018-08-13 13:58] LABS: METHADONE NEGATIVE (NEGATIVE)
[2018-08-13 14:05] LABS: ETHYL ALCOHOL 0 mg/dl (0-30)
[2018-08-13 15:45] VITALS: BP 148/92
== END 2018-08-13 15:45 | disposition short-term general hospital (02) ==
LOC: ED 13:10
PROVIDERS: Family Medicine
DX: J96.90 Respiratory failure, unspecified, unspecified whether with hypoxia or hypercapnia (principal); R45.851 Suicidal ideations; L02.11 Cutaneous abscess of neck; L03.221 Cellulitis of neck; B20 Human immunodeficiency virus [HIV] disease; F19.20 Other psychoactive substance dependence, uncomplicated; G40.909 Epilepsy, unspecified, not intractable, without status epilepticus; F17.210 Nicotine dependence, cigarettes, uncomplicated; Z86.718 Personal history of other venous thrombosis and embolism; Z87.440 Personal history of urinary (tract) infections

== ENCOUNTER 2018-09-06 22:49 | Emergency (ER) | payer MEDICAID ==
[~2018-09-06] VITALS: Ht 170.2 cm; Wt 60.0 kg
[2018-09-06 23:46] LABS: HEMATOCRIT 30.6 % (37.0-47.0); HEMOGLOBIN 9.6 g/dl (12.0-16.0); IMMATURE GRANULOCYTES 0.5 % (0.0-5.0); MEAN CELL VOLUME 95.3 fL CALC (80.0-100.0); MEAN CORPUSCULAR HGB 29.9 pG CALC (26.0-32.0); MEAN CORPUSCULAR HGB CONC 31.4 g/L CALC (32.0-36.0); NEUT# 1.23 thou/uL (2.00-7.15); RED BLOOD COUNT 3.21 mill/uL (4.20-5.60); RED CELL DISTRI WIDTH 15.2 % (11.5-15.5)
[2018-09-06 23:48] LABS: URINE BILIRUBIN - DIPSTICK NEGATIVE (NEGATIVE); URINE BLOOD DIPSTICK NEGATIVE (NEGATIVE); URINE COLOR YELLOW; URINE GLUCOSE - DIPSTICK NEGATIVE (NEGATIVE); URINE KETONE NEGATIVE (NEGATIVE); URINE LEUK ESTERASE NEGATIVE (NEGATIVE); URINE NITRITE - DIPSTICK NEGATIVE (Negative); URINE PH 5.5 (4.5-8.0); URINE PROTEIN - DIPSTICK NEGATIVE (NEG-TRACE); URINE SPECIFIC GRAVITY >=1.030; URINE UROBILINOGEN - DIPSTICK 0.2 E.U./dL (0.2)
[2018-09-07] LABS: ALBUMIN 3.9 g/dL (3.2-5.0); ALKALINE PHOSPHATASE 83 u/l (38-126); ANION GAP 15 (6-22 (CALC)); BILIRUBIN, TOTAL 0.3 mg/dL (0.0-1.4); BUN 22 mg/dL (7-17); BUN/CREATININE RATIO 21 (12-20 (CALC)); CARBON DIOXIDE 22 mmol/l (22-30); CHLORIDE 109 mmol/l (95-108); GFR 59 ML/MIN (>=60 (CALC)); GFR FOR AFR.AMER. > 60 ML/MIN (>=60 (CALC)); POTASSIUM 4.4 mmol/l (3.5-5.1); SGOT/AST 23 u/l (14-36); SODIUM 141 mmol/l (137-146); TOTAL PROTEIN 7.7 g/dL (6.3-8.2)
[2018-09-07 00:12] LABS: MYOGLOBIN 62 ng/mL (0 - 62)
[2018-09-07 01:00] LABS: COCAINE NEGATIVE (NEGATIVE); METHADONE NEGATIVE (NEGATIVE); TETRAHYDROCANNABIONOL NEGATIVE (NEGATIVE)
[2018-09-07 01:01] LABS: BARBITURATES NEGATIVE (NEGATIVE); OXCYCODONE NEGATIVE (NEGATIVE); TRICYLIC ANTIDEPRESSANTS NEGATIVE (NEGATIVE)
[2018-09-07] MEDS ORDERED: BENADRYL 50MG C50 MG PO (01:58)
[2018-09-07] MEDS ORDERED: AMOXICILLIN500 MG PO (01:58)
[2018-09-07 02:23] VITALS: BP 112/68
== END 2018-09-07 07:50 | disposition home or self-care (01) ==
LOC: ED 22:49
PROVIDERS: Emergency Medicine
DX: L01.00 Impetigo, unspecified (principal); M79.10 Myalgia, unspecified site; F19.10 Other psychoactive substance abuse, uncomplicated; B20 Human immunodeficiency virus [HIV] disease; G40.909 Epilepsy, unspecified, not intractable, without status epilepticus; F17.210 Nicotine dependence, cigarettes, uncomplicated

== ENCOUNTER 2018-10-04 15:09 | Emergency (ER) | payer MEDICAID ==
[~2018-10-04] VITALS: Ht 170.2 cm; Wt 50.0 kg
[~2018-10-04 15:09] MED LIST changes: +AMOXICILLIN500 MG PO; +BENADRYL 50MG C50 MG PO
[2018-10-04 15:51] LABS: HEMATOCRIT 34.9 % (37.0-47.0); IMMATURE GRANULOCYTES 0.2 % (0.0-5.0); MEAN CELL VOLUME 93.6 fL CALC (80.0-100.0); MEAN CORPUSCULAR HGB 29.5 pG CALC (26.0-32.0); MEAN CORPUSCULAR HGB CONC 31.5 g/L CALC (32.0-36.0); NEUT# 2.2 thou/uL (2.00-7.15); RED BLOOD COUNT 3.73 mill/uL (4.20-5.60); RED CELL DISTRI WIDTH 15.5 % (11.5-15.5)
[2018-10-04] MEDS ORDERED: LEVOTHYROXIN75 MC1 PO (16:23)
[2018-10-04 16:42] LABS: CREATININE 1.6 mg/dL (0.5-1.0)
[2018-10-04 16:43] LABS: ALBUMIN 4.8 g/dL (3.2-5.0); BILIRUBIN, TOTAL 1.5 mg/dL (0.0-1.4); POTASSIUM 5.4 mmol/l (3.5-5.1); TOTAL PROTEIN 9.3 g/dL (6.3-8.2)
[2018-10-04 17:11] LABS: URINE BILIRUBIN - DIPSTICK NEGATIVE (NEGATIVE); URINE BLOOD DIPSTICK NEGATIVE (NEGATIVE); URINE COLOR YELLOW; URINE GLUCOSE - DIPSTICK NEGATIVE (NEGATIVE); URINE KETONE NEGATIVE (NEGATIVE); URINE LEUK ESTERASE NEGATIVE (NEGATIVE); URINE NITRITE - DIPSTICK NEGATIVE (Negative); URINE PH 5.5 (4.5-8.0); URINE PROTEIN - DIPSTICK 30 mg/dL (NEG-TRACE); URINE SPECIFIC GRAVITY >=1.030; URINE UROBILINOGEN - DIPSTICK 0.2 E.U./dL (0.2)
[2018-10-04 17:17] LABS: URINE SQUAMOUS EPITHELIAL CELL MODERATE EPI/hpf (0-FEW)
[2018-10-04 18:15] VITALS: BP 133/76
== END 2018-10-04 18:15 | disposition home or self-care (01) ==
LOC: ED 15:09
DX: B20 Human immunodeficiency virus [HIV] disease (principal); Z51.5 Encounter for palliative care; D49.6 Neoplasm of unspecified behavior of brain; G40.909 Epilepsy, unspecified, not intractable, without status epilepticus; F17.200 Nicotine dependence, unspecified, uncomplicated

== ENCOUNTER 2018-10-05 00:53 | Emergency (ER) | payer MEDICAID ==
[~2018-10-05] VITALS: Ht 170.2 cm; Wt 90.0 kg
[~2018-10-05 00:53] MED LIST changes: +LEVOTHYROXIN75 MC1 PO
[2018-10-05 01:19] LABS: HEMATOCRIT 30.5 % (37.0-47.0); HEMOGLOBIN 9.5 g/dl (12.0-16.0); IMMATURE GRANULOCYTES 0.2 % (0.0-5.0); MEAN CELL VOLUME 94.7 fL CALC (80.0-100.0); MEAN CORPUSCULAR HGB 29.5 pG CALC (26.0-32.0); MEAN CORPUSCULAR HGB CONC 31.1 g/L CALC (32.0-36.0); NEUT# 2.48 thou/uL (2.00-7.15); RED BLOOD COUNT 3.22 mill/uL (4.20-5.60); RED CELL DISTRI WIDTH 15.6 % (11.5-15.5)
[2018-10-05 01:32] LABS: ALBUMIN 3.8 g/dL (3.2-5.0); BILIRUBIN, TOTAL 0.9 mg/dL (0.0-1.4); CREATININE 1.3 mg/dL (0.5-1.0); POTASSIUM 4.6 mmol/l (3.5-5.1); TOTAL PROTEIN 7.7 g/dL (6.3-8.2)
[2018-10-05 07:00] VITALS: BP 103/74
== END 2018-10-05 07:00 | disposition home or self-care (01) ==
LOC: ED 00:53
PROVIDERS: Emergency Medicine
DX: R53.1 Weakness (principal); B20 Human immunodeficiency virus [HIV] disease; G40.909 Epilepsy, unspecified, not intractable, without status epilepticus; F17.210 Nicotine dependence, cigarettes, uncomplicated; Z51.5 Encounter for palliative care

== ENCOUNTER 2018-10-05 11:29 | Emergency (ER) | payer MEDICAID ==
[~2018-10-05] VITALS: Ht 170.2 cm; Wt 70.0 kg
[2018-10-05 20:10] VITALS: BP 141/66
== END 2018-10-05 20:20 | disposition hospice, inpatient (51) ==
LOC: ED 11:29
DX: Z51.5 Encounter for palliative care (principal); B20 Human immunodeficiency virus [HIV] disease; G40.909 Epilepsy, unspecified, not intractable, without status epilepticus; F17.200 Nicotine dependence, unspecified, uncomplicated
CPT/HCPCS: J2060